=== PATIENT | male | born 1955 | race Caucasian/White ===

== ENCOUNTER 2018-01-08 10:50 | Inpatient (IN) | payer OTHER, MEDICAID ==
[~2018-01-08] VITALS: Ht 175.3 cm; Wt 78.5 kg
[2018-01-08] MEDS ORDERED: SODIUM CHLORIDE 0.9% 1,000 ML IV ONE ×2 (11:05)
[2018-01-08] MEDS ORDERED: THIAMINE 100mg/ml INJ (200mg/2ml VIAL) IV ONE ×2 (11:15→14:15)
[2018-01-08] MEDS ORDERED: chlordiazePOXIDE HCL 5 MG CAP PO ONE (11:15)
[2018-01-08 11:42] LABS: Basophils # (auto) 0 uL; Basophils % (auto) 0.1 % (0.0-2.0); Eosinophils # (auto) 0 uL; Hemoglobin 19.1 g/dL (13.5-17.5); Lymphocytes # (auto) 0.9 uL; Nucleated Red Blood Cells % 0.1 %
[2018-01-08 11:45] LABS: Lymphocytes % (auto) 6.9 % (10.0-50.0); Mean Corpuscular Hemoglobin 36.3 pg (28.0-32.0); Mean Corpuscular Hgb Conc. 33.9 g/dL (32.0-36.0); Mean Corpuscular Volume 106.9 fL (80.0-100.0); Monocytes # (auto) 0.8 uL; Monocytes % (auto) 5.8 % (0.0-12.0); Neutrophils # (auto) 11.8 uL; Neutrophils % (auto) 87.2 % (37.0-80.0); Platelet Count (auto) 111 10^3/uL (140-450); Red Blood Cells 5.26 10^6/uL (4.5-5.90); Red Cell Distribution Width 14.9 % (11.8-14.3); White Blood Cell 13.5 10^3/uL (4.4-10.8)
[2018-01-08 11:48] LABS: Hematocrit 56.2 % (41.0-53.0)
[2018-01-08 11:58] LABS: INR 0.93 (0.9-1.15); Partial Thromboplastin Time 27.5 sec (23.78-33.04)
[2018-01-08 12:02] LABS: Albumin 3.4 g/dL (3.4-5.0); Calcium 8.5 mg/dL (8.5-10.1); Magnesium 2.3 mg/dL (1.6-2.6); Potassium 3.9 mmol/L (3.5-5.1)
[2018-01-08 12:11] LABS: BUN/Creatinine Ratio 30.6; Bilirubin, Total 0.8 mg/dL (0.2-1.0)
[2018-01-08] MEDS ORDERED: ENOXAPARIN SOD 80 MG/0.8ML SYRINGE SC ONE (13:00)
[2018-01-08] MEDS ORDERED: chlordiazePOXIDE HCL 25 MG CAP PO ONE (14:15)
[2018-01-08] MEDS: SODIUM CHLORIDE 0.9% 1,000 ML IV SCH ×2 (14:49→23:00)
[2018-01-08] MEDS ORDERED: NITROGLYCERIN 0.4 MG SL TAB SL PRN (15:00)
[2018-01-08] MEDS ORDERED: ACETAMINOPHEN 500 MG TAB PO PRN (15:00)
[2018-01-08] MEDS ORDERED: LACTULOSE 20Gm/30ML SOLN PO PRN (15:00)
[2018-01-08] MEDS ORDERED: PANTOPRAZOLE 40 MG TAB PO ONE (15:00)
[2018-01-08] MEDS ORDERED: ASPirin 81 mg TAB PO ONE (15:00)
[2018-01-08] MEDS ORDERED: NITROGLYCERIN 0.2MG/HR TOPICAL PATCH TD ONE (15:00)
[2018-01-08] MEDS ORDERED: HYDROcodone-ACET 5/325MG TAB PO PRN (15:00)
[2018-01-08] MEDS ORDERED: MORPHINE SULFATE 4 MG/ML SYR/VIAL IV PRN ×2 (15:00)
[2018-01-08] MEDS ORDERED: DEXTROSE (50%) 50ML SYRG IV PRN (15:00)
[2018-01-08] MEDS: METOPROLOL TARTRATE 25 MG TAB PO SCH ×2 (15:16→21:04)
[2018-01-08 16:10] VITALS: BP 145/105
[2018-01-08 16:49] LABS: Urine Bacteria FEW /hpf (None Seen); Urine Blood 1+ /uL (Negative); Urine Hyaline Cast FEW /lpf (0 - 2); Urine Mucus FEW (None Seen); Urine Specific Gravity 1.022 (1.001-1.035); Urine WBC 2 /hpf (0 - 3)
[2018-01-08 16:58] LABS: Amphetamine Screen, Urine NEGATIVE (NEGATIVE); Barbiturate Scree,Urine NEGATIVE (NEGATIVE); Benzodiazephine Screen, Urine NEGATIVE (NEGATIVE); Cannabinoid Screen, Urine NEGATIVE (NEGATIVE); Cocaine Screen, Urine NEGATIVE (NEGATIVE); Opiate Scree,Urine POSITIVE (NEGATIVE); Phencyclidine Screen, Urine NEGATIVE (NEGATIVE)
[2018-01-08] MEDS: LORazepam 2MG/ML-1ML VIAL IV PRN ×3 (17:03→23:37)
[2018-01-08 17:04] VITALS: BP 145/105
[2018-01-08] MEDS ORDERED: HYDR-4683 PO (17:20)
[2018-01-08] MEDS ORDERED: MULTCAP45 PO (17:20)
[2018-01-08] MEDS: chlordiazePOXIDE HCL 25 MG CAP PO SCH ×2 (17:44→21:04)
[2018-01-08] MEDS: ACCU-CHEK COMFORT CURVE STRIP VI SCH ×2 (17:44→23:37)
[2018-01-08] MEDS ORDERED: chlordiazePOXIDE HCL 25 MG CAP PO SCH (18:00)
[2018-01-08 20:00] VITALS: BP 156/103
[2018-01-08] MEDS ORDERED: cloNIDine HCL 0.1 MG TAB PO ONE (22:30)
[2018-01-09] VITALS (9 sets, daily range): BP systolic 127–166; BP diastolic 71–110
[2018-01-09] MEDS: chlordiazePOXIDE HCL 25 MG CAP PO SCH ×6 (01:37→22:08)
[2018-01-09] MEDS: LORazepam 2MG/ML-1ML VIAL IV PRN ×3 (02:02→11:12)
[2018-01-09] MEDS: ACCU-CHEK COMFORT CURVE STRIP VI SCH ×4 (05:26→22:22)
[2018-01-09 05:27] LABS: Basophils # (auto) 0 uL; Eosinophils # (auto) 0 uL; Lymphocytes # (auto) 0.5 uL; Lymphocytes % (auto) 4.4 % (10.0-50.0); Monocytes # (auto) 0.8 uL; Neutrophils # (auto) 9.7 uL
[2018-01-09] MEDS: SODIUM CHLORIDE 0.9% 1,000 ML IV SCH ×2 (05:27→15:15)
[2018-01-09 05:29] LABS: Basophils % (auto) 0.1 % (0.0-2.0); Hemoglobin 15.9 g/dL (13.5-17.5); Mean Corpuscular Hemoglobin 37.3 pg (28.0-32.0); Mean Corpuscular Hgb Conc. 35.2 g/dL (32.0-36.0); Monocytes % (auto) 6.9 % (0.0-12.0); Neutrophils % (auto) 88.6 % (37.0-80.0); Platelet Count (auto) 86 10^3/uL (140-450); Red Blood Cells 4.25 10^6/uL (4.5-5.90); Red Cell Distribution Width 14.8 % (11.8-14.3)
[2018-01-09 05:44] LABS: Albumin 3.3 g/dL (3.4-5.0); Potassium 3.7 mmol/L (3.5-5.1)
[2018-01-09 05:51] LABS: BUN/Creatinine Ratio 43.1
[2018-01-09 05:52] LABS: Bilirubin, Total 1.4 mg/dL (0.2-1.0); Calcium 8.4 mg/dL (8.5-10.1); Total Protein 6.3 g/dL (6.4-8.2)
[2018-01-09] MEDS: PANTOPRAZOLE 40 MG TAB PO SCH (10:28)
[2018-01-09] MEDS: METOPROLOL TARTRATE 25 MG TAB PO SCH ×2 (10:31→22:09)
[2018-01-09] MEDS: ASPirin 81 mg TAB PO SCH (10:31)
[2018-01-09] MEDS: THIAMINE 100mg/ml INJ (200mg/2ml VIAL) IV SCH (10:32)
[2018-01-09] MEDS: NITROGLYCERIN 0.2MG/HR TOPICAL PATCH TD SCH (10:33)
[2018-01-09] MEDS ORDERED: DEXTROSE (50%) 50ML SYRG IV PRN (11:30)
[2018-01-09] MEDS: cloNIDine HCL 0.1 MG TAB PO PRN (11:52)
[2018-01-09] MEDS: InsuLIN REG 1unit/0.01ml Soln (100units/ml) SC SCH ×3 (12:03→22:27)
[2018-01-09 12:35] LABS: Albumin 3.3 g/dL (3.4-5.0)
[2018-01-09 12:39] LABS: Bilirubin, Direct 0.6 mg/dL (0-0.2); Bilirubin, Total 1.6 mg/dL (0.2-1.0); Total Protein 6.5 g/dL (6.4-8.2)
[2018-01-09] MEDS ORDERED: METOPROLOL TARTRATE 1MG/1ML-5ML VIAL IV ONE (13:00)
[2018-01-09] MEDS ORDERED: IOHEXOL 350 MG/ML 100ML IJ ONE (14:05)
[2018-01-10] VITALS: BP 135/101
[2018-01-10] MEDS: cloNIDine HCL 0.1 MG TAB PO PRN (01:11)
[2018-01-10] MEDS: chlordiazePOXIDE HCL 25 MG CAP PO SCH ×6 (02:02→23:12)
[2018-01-10 04:11] VITALS: BP 135/91
[2018-01-10] MEDS: SODIUM CHLORIDE 0.9% 1,000 ML IV SCH ×4 (04:32→21:20)
[2018-01-10] MEDS: InsuLIN REG 1unit/0.01ml Soln (100units/ml) SC SCH ×4 (06:51→22:00)
[2018-01-10] MEDS: ACCU-CHEK COMFORT CURVE STRIP VI SCH ×4 (06:51→22:00)
[2018-01-10 06:59] LABS: Basophils # (auto) 0 uL; Eosinophils # (auto) 0.1 uL; Hematocrit 43.5 % (41.0-53.0); Lymphocytes # (auto) 0.8 uL; Mean Corpuscular Hgb Conc. 34.4 g/dL (32.0-36.0); Monocytes # (auto) 0.7 uL; Neutrophils # (auto) 6.5 uL; Neutrophils % (auto) 80.1 % (37.0-80.0); Red Cell Distribution Width 14.6 % (11.8-14.3)
[2018-01-10 07:02] LABS: Basophils % (auto) 0.2 % (0.0-2.0); Eosinophils % (auto) 1.7 % (0.0-7.0); Lymphocytes % (auto) 9.7 % (10.0-50.0); Mean Corpuscular Hemoglobin 37.1 pg (28.0-32.0); Mean Corpuscular Volume 107.8 fL (80.0-100.0); Monocytes % (auto) 8.3 % (0.0-12.0); Nucleated Red Blood Cells % 0.1 %; Red Blood Cells 4.04 10^6/uL (4.5-5.90); White Blood Cell 8.2 10^3/uL (4.4-10.8)
[2018-01-10 07:13] LABS: Albumin 2.7 g/dL (3.4-5.0); Calcium 7.7 mg/dL (8.5-10.1); Potassium 3.4 mmol/L (3.5-5.1)
[2018-01-10 07:20] LABS: Bilirubin, Total 1.5 mg/dL (0.2-1.0); Total Protein 5.8 g/dL (6.4-8.2)
[2018-01-10 07:35] LABS: Platelet Count (auto) 64 10^3/uL (140-450)
[2018-01-10] MEDS ORDERED: ADENOSINE 65 MG in GIVE UN-DILUTED 0 ML IV STA (08:34)
[2018-01-10] MEDS: THIAMINE 100mg/ml INJ (200mg/2ml VIAL) IV SCH (10:22)
[2018-01-10] MEDS: PANTOPRAZOLE 40 MG TAB PO SCH (10:23)
[2018-01-10] MEDS: ASPirin 81 mg TAB PO SCH (10:23)
[2018-01-10 12:06] VITALS: BP 148/92
[2018-01-10] MEDS: METOPROLOL TARTRATE 25 MG TAB PO SCH ×2 (14:10→23:13)
[2018-01-10] MEDS: NITROGLYCERIN 0.2MG/HR TOPICAL PATCH TD SCH (14:17)
[2018-01-10 15:50] VITALS: BP 153/98
[2018-01-10 19:47] VITALS: BP 142/94
[2018-01-10] MEDS: PROMETHAZINE HCL 25 MG/ML 1ML IV PRN (20:34)
[2018-01-11] VITALS: BP 151/92
[2018-01-11] MEDS: chlordiazePOXIDE HCL 25 MG CAP PO SCH ×2 (02:11→05:57)
[2018-01-11] MEDS: PROMETHAZINE HCL 25 MG/ML 1ML IV PRN (03:23)
[2018-01-11 04:00] VITALS: BP 144/88
[2018-01-11 05:40] LABS: Basophils # (auto) 0 uL; Basophils % (auto) 0.2 % (0.0-2.0); Eosinophils # (auto) 0.3 uL; Lymphocytes # (auto) 0.9 uL; Nucleated Red Blood Cells % 0.1 %; Platelet Count (auto) 69 10^3/uL (140-450); White Blood Cell 9.2 10^3/uL (4.4-10.8)
[2018-01-11 05:43] LABS: Eosinophils % (auto) 3.4 % (0.0-7.0); Hematocrit 44.1 % (41.0-53.0); Hemoglobin 15.2 g/dL (13.5-17.5); Lymphocytes % (auto) 9.4 % (10.0-50.0); Mean Corpuscular Hemoglobin 37.4 pg (28.0-32.0); Mean Corpuscular Hgb Conc. 34.4 g/dL (32.0-36.0); Mean Corpuscular Volume 108.7 fL (80.0-100.0); Monocytes # (auto) 0.9 uL; Monocytes % (auto) 9.4 % (0.0-12.0); Neutrophils # (auto) 7.1 uL; Neutrophils % (auto) 77.6 % (37.0-80.0); Red Blood Cells 4.06 10^6/uL (4.5-5.90); Red Cell Distribution Width 14.5 % (11.8-14.3)
[2018-01-11 06:10] LABS: Albumin 2.9 g/dL (3.4-5.0); Calcium 7.6 mg/dL (8.5-10.1)
[2018-01-11 06:14] LABS: BUN/Creatinine Ratio 32.7; Bilirubin, Total 1.5 mg/dL (0.2-1.0); Total Protein 5.8 g/dL (6.4-8.2)
[2018-01-11 06:29] LABS: Potassium 2.9 mmol/L (3.5-5.1)
[2018-01-11] MEDS: InsuLIN REG 1unit/0.01ml Soln (100units/ml) SC SCH ×4 (07:00→21:16)
[2018-01-11] MEDS: ACCU-CHEK COMFORT CURVE STRIP VI SCH ×4 (07:13→21:15)
[2018-01-11] MEDS ORDERED: POTASSIUM EFFERVESENT TAB 25 MEQ PO ONE (07:15)
[2018-01-11] MEDS: POTASSIUM CHL 20MEQ/100ML 100 ML IV SCH ×2 (07:49→10:07)
[2018-01-11] MEDS: cloNIDine HCL 0.1 MG TAB PO PRN (07:52)
[2018-01-11 08:00] VITALS: BP 146/106
[2018-01-11] MEDS: ASPirin 81 mg TAB PO SCH (10:09)
[2018-01-11] MEDS: THIAMINE 100mg/ml INJ (200mg/2ml VIAL) IV SCH (10:09)
[2018-01-11] MEDS: PANTOPRAZOLE 40 MG TAB PO SCH (10:10)
[2018-01-11] MEDS: NITROGLYCERIN 0.2MG/HR TOPICAL PATCH TD SCH (10:11)
[2018-01-11] MEDS: METOPROLOL TARTRATE 25 MG TAB PO SCH ×2 (10:12→21:15)
[2018-01-11 12:00] VITALS: BP 140/97
[2018-01-11 15:55] VITALS: BP 134/88
[2018-01-11 20:00] VITALS: BP 135/93
[2018-01-11] MEDS: chlordiazePOXIDE HCL 25 MG CAP PO PRN (21:16)
[2018-01-12] VITALS: BP 147/82
[2018-01-12] MEDS: PROMETHAZINE HCL 25 MG/ML 1ML IV PRN
[2018-01-12] MEDS: LORazepam 2MG/ML-1ML VIAL IV PRN (02:19)
[2018-01-12 03:55] VITALS: BP 134/84
[2018-01-12] MEDS: ACCU-CHEK COMFORT CURVE STRIP VI SCH ×2 (05:32→11:30)
[2018-01-12] MEDS: InsuLIN REG 1unit/0.01ml Soln (100units/ml) SC SCH ×2 (05:38→11:30)
[2018-01-12 05:44] LABS: Basophils # (auto) 0 uL; Basophils % (auto) 0.2 % (0.0-2.0); Eosinophils # (auto) 0.3 uL; Monocytes % (auto) 8.5 % (0.0-12.0); Red Cell Distribution Width 14.7 % (11.8-14.3)
[2018-01-12 05:46] LABS: Eosinophils % (auto) 2.4 % (0.0-7.0); Hematocrit 47.3 % (41.0-53.0); Hemoglobin 15.9 g/dL (13.5-17.5); Lymphocytes # (auto) 0.8 uL; Mean Corpuscular Hemoglobin 36.9 pg (28.0-32.0); Mean Corpuscular Hgb Conc. 33.6 g/dL (32.0-36.0); Mean Corpuscular Volume 109.9 fL (80.0-100.0); Neutrophils # (auto) 9.8 uL; Neutrophils % (auto) 81.9 % (37.0-80.0); Platelet Count (auto) 87 10^3/uL (140-450); Red Blood Cells 4.31 10^6/uL (4.5-5.90)
[2018-01-12 05:59] LABS: Albumin 3.2 g/dL (3.4-5.0); BUN/Creatinine Ratio 18.8; Calcium 8.1 mg/dL (8.5-10.1); Potassium 3.5 mmol/L (3.5-5.1)
[2018-01-12 06:01] LABS: Bilirubin, Total 1.7 mg/dL (0.2-1.0); Total Protein 6.8 g/dL (6.4-8.2)
[2018-01-12] MEDS: chlordiazePOXIDE HCL 25 MG CAP PO PRN ×2 (06:55→15:06)
[2018-01-12 09:00] VITALS: BP 134/90
[2018-01-12] MEDS: NITROGLYCERIN 0.2MG/HR TOPICAL PATCH TD SCH (10:00)
[2018-01-12] MEDS: THIAMINE 100mg/ml INJ (200mg/2ml VIAL) IV SCH (10:37)
[2018-01-12] MEDS: PANTOPRAZOLE 40 MG TAB PO SCH (10:38)
[2018-01-12] MEDS: ASPirin 81 mg TAB PO SCH (10:39)
[2018-01-12] MEDS: METOPROLOL TARTRATE 25 MG TAB PO SCH (10:39)
[2018-01-12 16:03] VITALS: BP 134/90
== END 2018-01-12 18:00 | disposition home or self-care (01) | DRG 896 ==
LOC: ER 10:50 → EDBD 10:50 → OVERFLOW 14:54 → DOU IN ICU 16:32 → TELE-WESTW 01-12 06:23
PROVIDERS: ADMIT Internal Medicine; ATTEND Family Medicine
DX: F10.229 Alcohol dependence with intoxication, unspecified (principal); I21.4 Non-ST elevation (NSTEMI) myocardial infarction; G93.41 Metabolic encephalopathy; N17.9 Acute kidney failure, unspecified; R65.10 Systemic inflammatory response syndrome (SIRS) of non-infectious origin without acute organ dysfunction; E11.65 Type 2 diabetes mellitus with hyperglycemia; E86.0 Dehydration; N28.9 Disorder of kidney and ureter, unspecified; G89.29 Other chronic pain; M54.9 Dorsalgia, unspecified; Y90.8 Blood alcohol level of 240 mg/100 ml or more; D69.6 Thrombocytopenia, unspecified; I10 Essential (primary) hypertension; E78.5 Hyperlipidemia, unspecified; F17.210 Nicotine dependence, cigarettes, uncomplicated; F41.9 Anxiety disorder, unspecified; Z79.4 Long term (current) use of insulin; Z88.0 Allergy status to penicillin; Z79.82 Long term (current) use of aspirin; Z79.899 Other long term (current) drug therapy
CPT/HCPCS: 36415; 70450; 71045; 71275; 76705; 78452; 80053; 80061; 80076; 80307; 80320; 81001; 82550; 82962; 83036; 83735; 84443; 84484; 85025; 85379; 85610; 85652; 85730; 87040; 87081; 87086; 93005; 93017; 93306; 93970; 96361; 96372; 96374; 97116; 97530; A6257; G0378; J0153; J1815; J3480

== ENCOUNTER 2018-10-01 12:58 | Inpatient (IN) | payer OTHER ==
[~2018-10-01] VITALS: Ht 180.3 cm; Wt 97.8 kg
[~2018-10-01 12:58] MED LIST: AML5T PO; ASPI-231 PO; ESCI20TA51 PO; FINA5TAB4 PO; HYDR-4833 PO; IBUP600T27 PO; MULTCAP45 PO; ROSU10TA16 PO; TRAZ100T2 PO
[2018-10-01 13:54] LABS: Basophils # (auto) 0.1 uL; Basophils % (auto) 0.8 % (0.0-2.0); Eosinophils # (auto) 0 uL; Hematocrit 43.2 % (41.0-53.0); Hemoglobin 14.7 g/dL (13.5-17.5); Lymphocytes % (auto) 8.1 % (10.0-50.0); Monocytes # (auto) 0.6 uL; Monocytes % (auto) 5.3 % (0.0-12.0); Neutrophils # (auto) 10.4 uL; Neutrophils % (auto) 85.8 % (37.0-80.0); Nucleated Red Blood Cells % 0.1 %; Platelet Count (auto) 262 10^3/uL (140-450); Red Blood Cells 4.45 10^6/uL (4.5-5.90); Red Cell Distribution Width 14.6 % (11.8-14.3); White Blood Cell 12.1 10^3/uL (4.4-10.8)
[2018-10-01 14:13] LABS: Albumin 3.5 g/dL (3.4-5.0); Calcium 7.6 mg/dL (8.5-10.1)
[2018-10-01] MEDS ORDERED: SODIUM CHLORIDE 0.9% 1,000 ML IV ONE (14:15)
[2018-10-01 14:16] LABS: Acetaminophen 2.2 ug/mL (10-30)
[2018-10-01 14:24] LABS: BUN/Creatinine Ratio 19.1; Bilirubin, Total 0.3 mg/dL (0.2-1.0); Total Protein 6.4 g/dL (6.4-8.2)
[2018-10-01 14:29] LABS: Urine Bacteria NONE SEEN /hpf (None Seen); Urine Blood Negative /uL (Negative); Urine Mucus FEW (None Seen); Urine Specific Gravity 1.019 (1.001-1.035); Urine WBC 2 /hpf (0 - 3)
[2018-10-01 14:37] LABS: Amphetamine Screen, Urine NEGATIVE (NEGATIVE); Barbiturate Scree,Urine NEGATIVE (NEGATIVE); Benzodiazephine Screen, Urine NEGATIVE (NEGATIVE); Cannabinoid Screen, Urine NEGATIVE (NEGATIVE); Cocaine Screen, Urine NEGATIVE (NEGATIVE); Opiate Scree,Urine NEGATIVE (NEGATIVE); Phencyclidine Screen, Urine NEGATIVE (NEGATIVE)
[2018-10-01] MEDS ORDERED: FOLIC ACID 1 MG, MULTIPLE VITAMIN 10 ML, MAGNESIUM SULF SDV 50% 8 MEQ, THIAMINE INJ 100... INJ SCH ×5 (15:00)
[2018-10-01] MEDS ORDERED: PANTOPRAZOLE 40 MG TAB PO ONE (20:15)
[2018-10-01] MEDS ORDERED: NICOTINE 21MG/24 HR TOPICAL PATCH TD ONE (20:15)
[2018-10-01] MEDS ORDERED: LORazepam 2MG/ML-1ML VIAL IV ONE (20:15)
[2018-10-01] MEDS ORDERED: METHOCARBAMOL 500 MG TAB PO PRN (21:45)
[2018-10-01] MEDS ORDERED: ACETAMINOPHEN 500 MG TAB PO PRN (21:45)
[2018-10-01] MEDS ORDERED: LORazepam 2MG/ML-1ML VIAL IV PRN (21:45)
[2018-10-01] MEDS ORDERED: traZODone HCL 50 MG TAB PO SCH (22:00)
[2018-10-01] MEDS: chlordiazePOXIDE HCL 25 MG CAP PO SCH (22:30)
[2018-10-01 23:10] VITALS: BP 157/88
--- NOTE | 2018-10-01 23:10 | NUR ---
Telemetry admit from [facility] admitted to Telemetry unit. Patient oriented to SILVANA MAUR[facility], primary RN, unit, room, bed, and unit policies regarding patient care and visiting hours. Patient now on continuous telemetry monitoring, tele box #[id number] and telemetry reading on arrival to unit is sinus rhythm 90. Patient placed on bedside oxygen, weighed by bedscale and encouraged to call if they need something. All questions and concerns addressed, patient verbalized understanding. Bed in lowest locked position, call light within reach, side rails up x2, fall precautions in place. Will continue to monitor Q1hr and PRN.
[2018-10-02] MEDS ORDERED: METF-370 PO (00:04)
[2018-10-02] MEDS ORDERED: GLIP2.5T28 PO (00:04)
[2018-10-02] MEDS ORDERED: METH750T3 PO (00:04)
[2018-10-02 05:00] VITALS: BP 148/87
[2018-10-02] MEDS: chlordiazePOXIDE HCL 25 MG CAP PO SCH ×4 (06:08→21:43)
[2018-10-02 06:14] LABS: Basophils # (auto) 0 uL; Basophils % (auto) 0.4 % (0.0-2.0); Eosinophils # (auto) 0.1 uL; Eosinophils % (auto) 0.8 % (0.0-7.0); Hematocrit 39.3 % (41.0-53.0); Hemoglobin 13.5 g/dL (13.5-17.5); Lymphocytes # (auto) 0.8 uL; Lymphocytes % (auto) 7.6 % (10.0-50.0); Mean Corpuscular Hemoglobin 33.1 pg (28.0-32.0); Mean Corpuscular Hgb Conc. 34.4 g/dL (32.0-36.0); Mean Corpuscular Volume 96.2 fL (80.0-100.0); Monocytes # (auto) 0.6 uL; Monocytes % (auto) 5.5 % (0.0-12.0); Neutrophils # (auto) 8.7 uL; Neutrophils % (auto) 85.7 % (37.0-80.0); Platelet Count (auto) 223 10^3/uL (140-450); Red Blood Cells 4.09 10^6/uL (4.5-5.90); Red Cell Distribution Width 14.4 % (11.8-14.3); White Blood Cell 10.2 10^3/uL (4.4-10.8)
[2018-10-02 06:31] LABS: Calcium 7.4 mg/dL (8.5-10.1); Potassium 3.7 mmol/L (3.5-5.1)
[2018-10-02 06:47] LABS: BUN/Creatinine Ratio 20.6
[2018-10-02 08:00] VITALS: BP 151/83
--- NOTE | 2018-10-02 08:00 | NUR ---
Received pt resting in bed, call light within reach, pt denies any pain or discomfort at this time, will continue to monitor pt.
[2018-10-02] MEDS: ASPirin-EC 81 mg tab PO SCH (09:15)
[2018-10-02] MEDS: cefTRIAXone 1GM/50ML D5W 50 ML IV SCH (09:15)
[2018-10-02] MEDS: amLODIPine BESYLATE 5 MG TAB PO SCH (09:16)
[2018-10-02] MEDS: FINASTERIDE 5 MG TAB PO SCH (09:17)
[2018-10-02] MEDS: NICOTINE 14 MG/24HR TOPICAL PATCH TD SCH (09:17)
[2018-10-02 09:59] VITALS: BP 151/83
[2018-10-02] MEDS ORDERED: AZITHROMYCIN 500MG/ 250ML 250 ML IV SCH (10:00)
[2018-10-02] MEDS: FOLIC ACID 1 MG, MULTIPLE VITAMIN 10 ML, MAGNESIUM SULF SDV 50% 8 MEQ, THIAMINE INJ 100... INJ SCH ×5 (12:33)
[2018-10-02 12:50] VITALS: BP 145/86
--- NOTE | 2018-10-02 13:50 | NUR ---
Dr. Her at bed side to see pt, doctor discussed the plan of care with pt and pt's .
[2018-10-02] MEDS ORDERED: DEXTROSE (50%) 50ML SYRG IV PRN (14:00)
[2018-10-02] MEDS ORDERED: CLINDAMYCIN 600 MG/4 ML VL IM SCH (14:00)
[2018-10-02] MEDS: CLINDAMYCIN IV SCH ×2 (14:09→21:43)
[2018-10-02] MEDS: D5W IV SCH ×2 (14:09→21:43)
[2018-10-02 17:01] VITALS: BP 133/79
[2018-10-02] MEDS: ACCU-CHEK COMFORT CURVE STRIP VI SCH ×2 (17:26→23:56)
[2018-10-02] MEDS: InsuLIN REG 1unit/0.01ml Soln (100units/ml) SC SCH ×2 (17:27→23:57)
--- NOTE | 2018-10-02 19:20 | NUR ---
Opening Shift Note Assumed care of patient, awake and alert. No S/S of distress/SOB or pain. Instructed on POC and to call for assist PRN. Bed in lowest locked position, call light within reach, side rails up x2. Will continue to monitor for changes Q1hr and PRN.
[2018-10-02] MEDS: HYDROcodone-ACET 5/325MG TAB PO PRN (20:51)
[2018-10-02 21:46] VITALS: BP 132/84
--- NOTE | 2018-10-02 22:50 | NUR ---
IV insertion IV access obtained, via clean sterile technique by inserting 20 gauge catheter at left forearm after 1 attempt. IV secured properly. No trauma to site. Patient tolerated well. NOTE: Previous IV accidently pulled out by patient. Catheter was intact, pressure dressing applied.
[2018-10-03] MEDS: HYDROcodone-ACET 5/325MG TAB PO PRN ×2 (04:35→10:47)
[2018-10-03 04:42] VITALS: BP 148/88
[2018-10-03 05:19] LABS: Basophils # (auto) 0 uL; Basophils % (auto) 0.5 % (0.0-2.0); Eosinophils # (auto) 0.4 uL; Eosinophils % (auto) 4.5 % (0.0-7.0); Hematocrit 39.3 % (41.0-53.0); Hemoglobin 13.3 g/dL (13.5-17.5); Lymphocytes % (auto) 12.4 % (10.0-50.0); Mean Corpuscular Hemoglobin 32.8 pg (28.0-32.0); Mean Corpuscular Hgb Conc. 33.9 g/dL (32.0-36.0); Mean Corpuscular Volume 96.9 fL (80.0-100.0); Monocytes # (auto) 0.5 uL; Monocytes % (auto) 5.8 % (0.0-12.0); Neutrophils # (auto) 6.1 uL; Neutrophils % (auto) 76.8 % (37.0-80.0); Platelet Count (auto) 186 10^3/uL (140-450); Red Blood Cells 4.05 10^6/uL (4.5-5.90); Red Cell Distribution Width 14.6 % (11.8-14.3); White Blood Cell 7.9 10^3/uL (4.4-10.8)
[2018-10-03] MEDS: D5W IV SCH (05:57)
[2018-10-03] MEDS: InsuLIN REG 1unit/0.01ml Soln (100units/ml) SC SCH ×2 (05:57→12:05)
[2018-10-03] MEDS: CLINDAMYCIN IV SCH (05:57)
[2018-10-03] MEDS: ACCU-CHEK COMFORT CURVE STRIP VI SCH ×2 (05:57→12:04)
[2018-10-03] MEDS: cefTRIAXone 1GM/50ML D5W 50 ML IV SCH (07:53)
--- NOTE | 2018-10-03 08:00 | NUR ---
Received pt resting in bed, call light within reach, pt reports back pain, pt requested the muscle spasm medication, will continue to monitor pt.
--- NOTE | 2018-10-03 08:45 | NUR ---
Dr. Her at bed side to see pt, doctor discussed plan of care with pt, removed O2 and monitor pt's O2 level at [facility] after 5 min and pt's O2 level was 96% at [facility], Dr. Her informed.
[2018-10-03 09:00] VITALS: BP 139/88
[2018-10-03] MEDS: ASPirin-EC 81 mg tab PO SCH (09:48)
[2018-10-03] MEDS: amLODIPine BESYLATE 5 MG TAB PO SCH (09:49)
[2018-10-03] MEDS: FINASTERIDE 5 MG TAB PO SCH (09:50)
[2018-10-03] MEDS: NICOTINE 14 MG/24HR TOPICAL PATCH TD SCH (09:50)
[2018-10-03] MEDS ORDERED: chlordiazePOXIDE HCL 25 MG CAP PO SCH (10:00)
[2018-10-03 10:24] VITALS: BP 139/88
[2018-10-03] MEDS: FOLIC ACID 1 MG, MULTIPLE VITAMIN 10 ML, MAGNESIUM SULF SDV 50% 8 MEQ, THIAMINE INJ 100... INJ SCH ×5 (11:08)
--- NOTE | 2018-10-03 12:40 | NUR ---
Discharge instructions given as ordered. Encourage to follow up with PMD as instructed. All questions and concerns addressed. Patient verbalized understanding. Medication reconciliation form completed and copy given to patient. Home medications held in Pharmacy returned to patient, no needed vaccines to be given. IV removed with catheter intact, pressure dressing applied. Telemetry unit returned to [facility].
--- NOTE | 2018-10-03 12:55 | NUR ---
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 No distress noted at time of departure.
[2018-10-03] MEDS ORDERED: MILK OF MAGNESIA 30ML SUSP ONE (22:22)
[2018-10-04] MEDS ORDERED: chlordiazePOXIDE HCL 25 MG CAP PO SCH (07:00)
== END 2018-10-03 12:55 | disposition home or self-care (01) | DRG 177 ==
LOC: ER 12:58 → EDBD 12:58 → TELE 12:59 → TELE-CENTR 23:10
PROVIDERS: ADMIT Nurse Practitioner Family; ATTEND Family Medicine
DX: J69.0 Pneumonitis due to inhalation of food and vomit (principal); G92 Toxic encephalopathy; E87.1 Hypo-osmolality and hyponatremia; J90 Pleural effusion, not elsewhere classified; F10.229 Alcohol dependence with intoxication, unspecified; I10 Essential (primary) hypertension; E78.5 Hyperlipidemia, unspecified; Y90.8 Blood alcohol level of 240 mg/100 ml or more; Z83.3 Family history of diabetes mellitus; E78.00 Pure hypercholesterolemia, unspecified; E86.0 Dehydration; F17.210 Nicotine dependence, cigarettes, uncomplicated; F32.9 Major depressive disorder, single episode, unspecified; F41.9 Anxiety disorder, unspecified; M54.5 Low back pain; R73.03 Prediabetes; G89.29 Other chronic pain; N40.0 Benign prostatic hyperplasia without lower urinary tract symptoms; Z79.82 Long term (current) use of aspirin; Z79.899 Other long term (current) drug therapy; Z88.0 Allergy status to penicillin
CPT/HCPCS: 36415; 71045; 80048; 80053; 80307; 80320; 80329; 81001; 82962; 83036; 83735; 85025; 93005; 94761; 96365; 96366; 96375; G0378; J0696; J1815; J3490

== ENCOUNTER 2018-10-27 14:05 | Inpatient (IN) | payer OTHER | END 2018-10-29 11:25 | disposition home or self-care (01) | LOC: ER 14:05 → TELE 14:06 → TELE-EAST 20:04 | DX: I24.9 Acute ischemic heart disease, unspecified (principal); I10 Essential (primary) hypertension; F10.129 Alcohol abuse with intoxication, unspecified; E11.9 Type 2 diabetes mellitus without complications; E78.5 Hyperlipidemia, unspecified ==

== ENCOUNTER 2018-11-05 20:46 | Emergency (ER) | payer OTHER ==
[~2018-11-05] VITALS: Ht 180.3 cm; Wt 72.6 kg
[~2018-11-05 20:46] MED LIST changes: +GLIP2.5T28 PO; +METF-370 PO
[2018-11-05] MEDS ORDERED: THIAMINE INJ 100 MG in SODIUM CHLORIDE 0.9% 1,000 ML IV ONE (21:45)
[2018-11-05] MEDS ORDERED: LORazepam 2MG/ML-1ML VIAL IV ONE (22:00)
[2018-11-05 22:57] LABS: Salicylate 2.3 mg/dL (2.8-20.0)
[2018-11-05 23:29] LABS: Basophils # (auto) 0 uL; Basophils % (auto) 0.6 % (0.0-2.0); Eosinophils # (auto) 0.1 uL; Eosinophils % (auto) 1.3 % (0.0-7.0); Hematocrit 50.8 % (41.0-53.0); Hemoglobin 16.9 g/dL (13.5-17.5); Lymphocytes # (auto) 1.9 uL; Mean Corpuscular Hemoglobin 31.7 pg (28.0-32.0); Mean Corpuscular Hgb Conc. 33.3 g/dL (32.0-36.0); Mean Corpuscular Volume 95.1 fL (80.0-100.0); Monocytes # (auto) 0.7 uL; Monocytes % (auto) 9.8 % (0.0-12.0); Neutrophils # (auto) 4.5 uL; Neutrophils % (auto) 62.3 % (37.0-80.0); Platelet Count (auto) 112 10^3/uL (140-450); Red Blood Cells 5.34 10^6/uL (4.5-5.90); Red Cell Distribution Width 15.8 % (11.8-14.3); White Blood Cell 7.2 10^3/uL (4.4-10.8)
[2018-11-05 23:36] LABS: Acetaminophen < 2.0 ug/mL (10-30)
[2018-11-05 23:50] LABS: Albumin 3.7 g/dL (3.4-5.0); BUN/Creatinine Ratio 14.5; Magnesium 1.9 mg/dL (1.6-2.6); Potassium 3.4 mmol/L (3.5-5.1)
[2018-11-05 23:53] LABS: Bilirubin, Total 0.6 mg/dL (0.2-1.0); Total Protein 6.8 g/dL (6.4-8.2)
[2018-11-06 00:06] LABS: Blood Alcohol 391.2 mg/dL (0-5)
[2018-11-06 00:13] LABS: Amylase 48 U/L (25-115); Lipase 284 U/L (73-393)
[2018-11-06] MEDS ORDERED: SODIUM CHLORIDE 0.9% 1,000 ML IV ONE ×3 (00:15→08:30)
[2018-11-06] MEDS ORDERED: SODIUM CHLORIDE 0.9% 1,000 ML IVB ONE (08:00)
[2018-11-06 09:00] VITALS: BP 133/100
[2018-11-06] MEDS ORDERED: FOLIC ACID 1 MG, MULTIPLE VITAMIN 10 ML, MAGNESIUM SULF SDV 50% 8 MEQ, THIAMINE INJ 100... INJ SCH ×5 (12:00)
== END 2018-11-06 10:29 | disposition left against medical advice (07) ==
LOC: ER 20:48
DX: F10.129 Alcohol abuse with intoxication, unspecified (principal); F32.9 Major depressive disorder, single episode, unspecified; R07.89 Other chest pain; R45.851 Suicidal ideations; F41.9 Anxiety disorder, unspecified; F17.210 Nicotine dependence, cigarettes, uncomplicated; E78.5 Hyperlipidemia, unspecified; I10 Essential (primary) hypertension; I25.2 Old myocardial infarction
CPT/HCPCS: 36415; 71045; 80053; 80320; 80329; 82140; 82150; 83690; 83735; 84443; 96361; 96365; 96366; 96375; 99284; J2060; J7030

== ENCOUNTER 2019-04-20 15:43 | Emergency (ER) | payer OTHER ==
[~2019-04-20] VITALS: Ht 180.3 cm; Wt 81.6 kg
[~2019-04-20 15:43] MED LIST changes: -TRAZ100T2 PO; +TRAZ100T3 PO
[2019-04-20] MEDS ORDERED: SODIUM CHLORIDE 0.9% 1,000 ML IV ONE ×2 (15:49)
[2019-04-20] MEDS ORDERED: THIAMINE 100mg/ml INJ (200mg/2ml VIAL) IV ONE (16:00)
[2019-04-20 16:41] LABS: Basophils # (auto) 0.1 10 ^3/uL (0-0.2); Basophils % (auto) 1.3 % (0.0-2.0); Eosinophils # (auto) 0.2 10 ^3/uL (0-0.8); Eosinophils % (auto) 2.1 % (0.0-7.0); Hematocrit 42.5 % (41.0-53.0); Lymphocytes # (auto) 1.7 10 ^3/uL (0.4-5.4); Lymphocytes % (auto) 18.1 % (10.0-50.0); Mean Corpuscular Hemoglobin 30.6 pg (28.0-32.0); Mean Corpuscular Hgb Conc. 32.9 g/dL (32.0-36.0); Monocytes # (auto) 0.5 10 ^3/uL (0-1.3); Monocytes % (auto) 5.1 % (0.0-12.0); Neutrophils # (auto) 6.8 10 ^3/uL (1.6-8.6); Neutrophils % (auto) 73.4 % (37.0-80.0); Nucleated Red Blood Cells % 0.2 %; Platelet Count (auto) 168 10^3/uL (140-450); Red Blood Cells 4.57 10^6/uL (4.5-5.90); Red Cell Distribution Width 16.3 % (11.8-14.3); White Blood Cell 9.3 10^3/uL (4.4-10.8)
[2019-04-20 16:56] LABS: Acetaminophen < 2.0 ug/mL (10-30); Albumin 3.2 g/dL (3.4-5.0); Calcium 7.7 mg/dL (8.5-10.1); Potassium 3.7 mmol/L (3.5-5.1); Salicylate 4.5 mg/dL (2.8-20.0)
[2019-04-20 17:04] LABS: Bilirubin, Total 0.3 mg/dL (0.2-1.0); Total Protein 6.6 g/dL (6.4-8.2)
[2019-04-20 23:33] LABS: Urine Bacteria NONE SEEN /hpf (None Seen); Urine Blood Negative /uL (Negative); Urine Mucus FEW (None Seen); Urine Specific Gravity 1.008 (1.001-1.035); Urine WBC 1 /hpf (0 - 3)
[2019-04-20 23:49] LABS: Amphetamine Screen, Urine NEGATIVE (NEGATIVE); Barbiturate Scree,Urine NEGATIVE (NEGATIVE); Benzodiazephine Screen, Urine POSITIVE (NEGATIVE); Cannabinoid Screen, Urine NEGATIVE (NEGATIVE); Cocaine Screen, Urine NEGATIVE (NEGATIVE); Opiate Scree,Urine NEGATIVE (NEGATIVE); Phencyclidine Screen, Urine NEGATIVE (NEGATIVE)
[2019-04-21] MEDS ORDERED: LORazepam 0.5 MG TAB PO ONE (00:45)
[2019-04-21] MEDS ORDERED: levoFLOXacin 750MG 150 ML IV ONE ×2 (01:15→01:45)
[2019-04-21 01:33] VITALS: BP 136/75
[2019-04-21] MEDS ORDERED: IOHEXOL 350 MG/ML 100ML IJ ONE (01:58)
== END 2019-04-21 04:43 | disposition home or self-care (01) ==
LOC: EDBD 15:43 → EDUNIT# 15:43 → ER 15:43
DX: F10.129 Alcohol abuse with intoxication, unspecified (principal); I10 Essential (primary) hypertension; E11.9 Type 2 diabetes mellitus without complications; F17.210 Nicotine dependence, cigarettes, uncomplicated; Z88.0 Allergy status to penicillin; Y90.9 Presence of alcohol in blood, level not specified
CPT/HCPCS: 36415; 71045; 71275; 80053; 80307; 80320; 80329; 81001; 84484; 85025; 85379; 87040; 96365; 96375; 99285; J1956; J3411; J7030; Q9967

== ENCOUNTER → 2019-05-11 | Emergency (ER) | payer OTHER ==
[~2019-05-11] VITALS: Ht 182.9 cm; Wt 77.1 kg
[~2019-05-11] MED LIST changes: +SODIUM CHLORIDE 0.9% 1,000 ML IV ONE; +THIAMINE 100mg/ml INJ (200mg/2ml VIAL) IV ONE; +levETIRAcetam 500 MG/5ML INJ IV ONE
[2019-05-11 21:15] LABS: Basophils # (auto) 0 10 ^3/uL (0-0.2); Basophils % (auto) 0.2 % (0.0-2.0); Eosinophils # (auto) 0 10 ^3/uL (0-0.8); Eosinophils % (auto) 0.3 % (0.0-7.0); Hemoglobin 15.4 g/dL (13.5-17.5); Lymphocytes # (auto) 0.9 10 ^3/uL (0.4-5.4); Lymphocytes % (auto) 11.7 % (10.0-50.0); Mean Corpuscular Hemoglobin 31.6 pg (28.0-32.0); Mean Corpuscular Hgb Conc. 33.6 g/dL (32.0-36.0); Mean Corpuscular Volume 94.2 fL (80.0-100.0); Monocytes # (auto) 0.6 10 ^3/uL (0-1.3); Monocytes % (auto) 7.7 % (0.0-12.0); Neutrophils % (auto) 80.1 % (37.0-80.0); Nucleated Red Blood Cells % 0.1 %; Platelet Count (auto) 178 10^3/uL (140-450); Red Blood Cells 4.88 10^6/uL (4.5-5.90); White Blood Cell 7.5 10^3/uL (4.4-10.8)
[2019-05-11 21:17] LABS: Red Cell Distribution Width 20.5 % (11.8-14.3)
[2019-05-11 21:32] LABS: Albumin 2.9 g/dL (3.4-5.0); BUN/Creatinine Ratio 15.5; Magnesium 1.7 mg/dL (1.6-2.6); Potassium 3.7 mmol/L (3.5-5.1)
[2019-05-11 21:34] LABS: Total Protein 6.8 g/dL (6.4-8.2)
[2019-05-11 21:36] LABS: Acetaminophen < 2.0 ug/mL (10-30); Salicylate 3.9 mg/dL (2.8-20.0)
[2019-05-11 21:53] LABS: Blood Alcohol 443.9 mg/dL (0-5)
[2019-05-11 22:17] LABS: INR 1.02 (0.9-1.15)
[2019-05-12 01:33] VITALS: BP 111/79
== END | disposition home or self-care (01) ==
LOC: EDUNIT# 20:09 → EDBD 20:09 → ER 20:11
DX: S00.83XA Contusion of other part of head, initial encounter (principal); S40.012A Contusion of left shoulder, initial encounter; S20.211A Contusion of right front wall of thorax, initial encounter; F10.129 Alcohol abuse with intoxication, unspecified; E11.9 Type 2 diabetes mellitus without complications; I10 Essential (primary) hypertension; F17.210 Nicotine dependence, cigarettes, uncomplicated; Z88.0 Allergy status to penicillin; Z79.1 Long term (current) use of non-steroidal anti-inflammatories (NSAID); Z79.82 Long term (current) use of aspirin; Z79.899 Other long term (current) drug therapy; Y90.8 Blood alcohol level of 240 mg/100 ml or more; W18.39XA Other fall on same level, initial encounter; Y93.89 Activity, other specified; Y92.89 Other specified places as the place of occurrence of the external cause; Y99.8 Other external cause status
CPT/HCPCS: 36415; 70450; 70486; 71250; 72125; 73030; 80053; 80320; 80329; 83735; 85025; 85610; 85730; 96374; 96375; 99285; J1953; J3411; J7030; J7060

== ENCOUNTER → 2019-08-02 | Emergency (ER) | payer OTHER ==
[~2019-08-02] VITALS: Ht 177.8 cm; Wt 77.1 kg
[~2019-08-02] MED LIST changes: +LORazepam 2MG/ML-1ML VIAL IV ONE; +NOREPINEPHRINE 8 MG/250ML KIT 0 ML IV ONE; -SODIUM CHLORIDE 0.9% 1,000 ML IV ONE; -THIAMINE 100mg/ml INJ (200mg/2ml VIAL) IV ONE; +cefTRIAXone 1GM/50ML D5W 50 ML IV ONE; -levETIRAcetam 500 MG/5ML INJ IV ONE
[2019-08-02 19:31] LABS: Basophils # (auto) 0.1 10 ^3/uL (0-0.2); Basophils % (auto) 1.5 % (0.0-2.0); Eosinophils # (auto) 0.1 10 ^3/uL (0-0.8); Eosinophils % (auto) 1.6 % (0.0-7.0); Hematocrit 46.3 % (41.0-53.0); Hemoglobin 15.4 g/dL (13.5-17.5); Lymphocytes # (auto) 1.8 10 ^3/uL (0.4-5.4); Lymphocytes % (auto) 19.4 % (10.0-50.0); Mean Corpuscular Hgb Conc. 33.2 g/dL (32.0-36.0); Mean Corpuscular Volume 93.6 fL (80.0-100.0); Monocytes # (auto) 0.6 10 ^3/uL (0-1.3); Monocytes % (auto) 6.8 % (0.0-12.0); Neutrophils # (auto) 6.6 10 ^3/uL (1.6-8.6); Neutrophils % (auto) 70.7 % (37.0-80.0); Nucleated Red Blood Cells % 0.2 %; Platelet Count (auto) 285 10^3/uL (140-450); Red Blood Cells 4.95 10^6/uL (4.5-5.90); Red Cell Distribution Width 15.9 % (11.8-14.3); White Blood Cell 9.4 10^3/uL (4.4-10.8)
[2019-08-02 19:47] LABS: Albumin 3.8 g/dL (3.4-5.0); BUN/Creatinine Ratio 16.5; Calcium 8.3 mg/dL (8.5-10.1); Magnesium 2.3 mg/dL (1.6-2.6); Potassium 4.3 mmol/L (3.5-5.1)
[2019-08-02 19:52] LABS: Bilirubin, Total 0.6 mg/dL (0.2-1.0); Total Protein 7.6 g/dL (6.4-8.2)
[2019-08-02 21:39] LABS: Urine Bacteria FEW /hpf (None Seen); Urine Blood Negative /uL (Negative); Urine WBC <1 /hpf (0 - 3)
[2019-08-02 21:50] LABS: Amphetamine Screen, Urine NEGATIVE (NEGATIVE); Barbiturate Scree,Urine NEGATIVE (NEGATIVE); Benzodiazephine Screen, Urine NEGATIVE (NEGATIVE); Cannabinoid Screen, Urine NEGATIVE (NEGATIVE); Cocaine Screen, Urine NEGATIVE (NEGATIVE); Opiate Scree,Urine NEGATIVE (NEGATIVE); Phencyclidine Screen, Urine NEGATIVE (NEGATIVE)
[2019-08-02 22:24] LABS: INR 0.97 (0.9-1.15); Partial Thromboplastin Time 25.9 sec (23.64-32.05)
[2019-08-03 03:00] VITALS: BP 179/95
== END | disposition short-term general hospital (02) ==
LOC: EDUNIT# 17:57 → EDBD 18:18 → ER 18:20
DX: S06.5X0A Traumatic subdural hemorrhage without loss of consciousness, initial encounter (principal); F10.129 Alcohol abuse with intoxication, unspecified; E11.9 Type 2 diabetes mellitus without complications; E78.5 Hyperlipidemia, unspecified; I10 Essential (primary) hypertension; Z88.0 Allergy status to penicillin; Z86.73 Personal history of transient ischemic attack (TIA), and cerebral infarction without residual deficits; W18.09XA Striking against other object with subsequent fall, initial encounter; Y93.89 Activity, other specified; Y92.098 Other place in other non-institutional residence as the place of occurrence of the external cause; Y99.8 Other external cause status; Y90.9 Presence of alcohol in blood, level not specified
CPT/HCPCS: 36415; 70450; 71045; 72125; 80053; 80307; 80320; 81001; 83735; 84484; 85025; 85610; 85730; 96365; 96375; 99291; J0696; 93005

== ENCOUNTER 2020-02-27 14:10 | Inpatient (IN) | payer OTHER ==
[~2020-02-27] VITALS: Ht 182.9 cm; Wt 69.7 kg
[~2020-02-27 14:10] MED LIST changes: +ESCI-34 PO; -ESCI20TA51 PO; -LORazepam 2MG/ML-1ML VIAL IV ONE; -NOREPINEPHRINE 8 MG/250ML KIT 0 ML IV ONE; -cefTRIAXone 1GM/50ML D5W 50 ML IV ONE
[2020-02-27 15:24] LABS: Hematocrit 52.4 % (41.0-53.0); Hemoglobin 17.4 g/dL (13.5-17.5); Mean Corpuscular Hemoglobin 31.3 pg (28.0-32.0); Mean Corpuscular Hgb Conc. 33.2 g/dL (32.0-36.0); Mean Corpuscular Volume 94.2 fL (80.0-100.0); Platelet Count (auto) 357 10^3/uL (140-450); Red Blood Cells 5.56 10^6/uL (4.5-5.90); White Blood Cell 28.2 10^3/uL (4.4-10.8)
[2020-02-27 15:28] LABS: Basophils % (manual) 0 (0.0-2.0); Blast Cells 0; Eosinophils % (manual) 0 (0-7); Metamyelocytes % 0; Myelocytes % 0; Promyelocytes % 0; Reactive Lymphocytes 0
[2020-02-27 15:41] LABS: INR 1.02 (0.9-1.15); Partial Thromboplastin Time 24.9 sec (23.0-31.2)
[2020-02-27 15:53] LABS: Potassium 4.6 mmol/L (3.5-5.1)
[2020-02-27 16:04] LABS: Albumin 3.7 g/dL (3.4-5.0); BUN/Creatinine Ratio 21.2; Bilirubin, Total 0.3 mg/dL (0.2-1.0); Calcium 7.9 mg/dL (8.5-10.1); Magnesium 2.2 mg/dL (1.6-2.6); Total Protein 7.3 g/dL (6.4-8.2)
[2020-02-27 16:14] LABS: Band Neutrophils % (manual) 9; Lymphocytes % (manual) 3 (10.0-50.0); Monocytes % (manual) 4 (0-12)
[2020-02-27] MEDS ORDERED: PANTOPRAZOLE 40 MG TAB PO SCH (16:30)
[2020-02-27] MEDS ORDERED: AMLO-496 PO (16:50)
[2020-02-27] MEDS ORDERED: TRAZ50TA2 PO (16:50)
[2020-02-27] MEDS ORDERED: DULO1CAP4 PO (16:50)
[2020-02-27] MEDS ORDERED: ACET-1304 PO (16:51)
[2020-02-27] MEDS ORDERED: BISO5TAB44 PO (16:51)
[2020-02-27] MEDS ORDERED: ASCO100076 PO (16:53)
[2020-02-27] MEDS ORDERED: GARL200T PO (16:54)
[2020-02-27] MEDS ORDERED: OMEG306C PO (16:54)
[2020-02-27] MEDS ORDERED: THIAMINE 100mg/ml INJ (200mg/2ml VIAL) IV ONE ×2 (17:00→18:00)
[2020-02-27] MEDS ORDERED: PIPERACILLIN-TAZOB 3.375GM 100 ML IV ONE (17:00)
[2020-02-27] MEDS ORDERED: NITROGLYCERIN 0.4 MG SL TAB SL PRN ×2 (17:30→18:30)
[2020-02-27] MEDS ORDERED: MORPHINE SULF INJ 2 MG/ML SYRINGE 1ML IV PRN ×2 (17:30→18:30)
[2020-02-27] MEDS ORDERED: LACTATED RINGER'S 1,000 ML IV ONE (18:00)
[2020-02-27] MEDS ORDERED: MULTIPLE VITAMIN TAB PO ONE (18:30)
[2020-02-27] MEDS ORDERED: FOLIC ACID 1 MG in D5W 5% 50 ML INJ ONE (18:30)
[2020-02-27] MEDS ORDERED: SUCRALFATE 1 GM/10 ML ORAL SUSP PO ONE (18:30)
[2020-02-27] MEDS ORDERED: PANTOPRAZOLE 40 MG TAB PO ONE (18:30)
[2020-02-27] MEDS ORDERED: MAGNESIUM SULFATE 1GM/100ML 100 ML IV ONE (18:45)
[2020-02-27] MEDS ORDERED: DEXTROSE (50%) 50ML SYRG IV PRN (18:45)
[2020-02-27] MEDS ORDERED: CALCIUM CHL 100MG/ML 1,000 MG in D5W 5% 100 ML IV ONE (18:45)
[2020-02-27] MEDS: chlordiazePOXIDE HCL 25 MG CAP PO SCH (18:53)
[2020-02-27 18:58] LABS: Lactic Acid w/Reflex 6.8 mmol/L (0.4-2.0)
[2020-02-27] MEDS: DOXYCYCLINE 100MG/250ML 250 ML IV SCH (20:09)
[2020-02-27] MEDS: ACETAMINOPHEN 325 MG TAB PO PRN (20:25)
[2020-02-27] MEDS: SODIUM CHLORIDE 0.9% 1,000 ML IV SCH (21:00)
[2020-02-27] MEDS: CLINDAMYCIN 600MG IV 50 ML IV SCH (22:00)
[2020-02-27] MEDS: ACCU-CHEK COMFORT CURVE STRIP VI SCH (22:00)
[2020-02-27] MEDS: InsuLIN REG 1unit/0.01ml Soln (100units/ml) SC SCH (22:00)
[2020-02-27] MEDS: SUCRALFATE 1 GM/10 ML ORAL SUSP PO SCH (22:00)
[2020-02-27] MEDS: LORazepam 2MG/ML-1ML VIAL IV PRN (22:20)
[2020-02-27] MEDS: ONDANSETRON HCL 4 MG/2 ML VIAL IV PRN (23:03)
[2020-02-28] MEDS: ONDANSETRON HCL 4 MG/2 ML VIAL IV PRN ×2 (00:35→20:31)
[2020-02-28] MEDS: chlordiazePOXIDE HCL 25 MG CAP PO SCH ×3 (02:05→23:02)
[2020-02-28] MEDS ORDERED: LORazepam 2MG/ML-1ML VIAL IV ONE (03:15)
[2020-02-28] MEDS: CLINDAMYCIN 600MG IV 50 ML IV SCH ×3 (06:00→23:02)
[2020-02-28] MEDS: DOXYCYCLINE 100MG/250ML 250 ML IV SCH ×2 (06:38→18:55)
[2020-02-28] MEDS: InsuLIN REG 1unit/0.01ml Soln (100units/ml) SC SCH ×4 (06:40→23:01)
[2020-02-28] MEDS: ACCU-CHEK COMFORT CURVE STRIP VI SCH ×4 (06:40→23:02)
[2020-02-28] MEDS: SUCRALFATE 1 GM/10 ML ORAL SUSP PO SCH ×3 (06:53→17:15)
[2020-02-28] MEDS ORDERED: chlordiazePOXIDE HCL 25 MG CAP PO SCH (07:00)
[2020-02-28 07:02] LABS: Basophils # (auto) 0.1 10 ^3/uL (0-0.2); Basophils % (auto) 0.4 % (0.0-2.0); Eosinophils # (auto) 0 10 ^3/uL (0-0.8); Hematocrit 40.1 % (41.0-53.0); Hemoglobin 13.7 g/dL (13.5-17.5); Lymphocytes # (auto) 0.6 10 ^3/uL (0.4-5.4); Lymphocytes % (auto) 2.4 % (10.0-50.0); Mean Corpuscular Hemoglobin 31.8 pg (28.0-32.0); Mean Corpuscular Hgb Conc. 34.1 g/dL (32.0-36.0); Mean Corpuscular Volume 93.4 fL (80.0-100.0); Monocytes # (auto) 1.6 10 ^3/uL (0-1.3); Monocytes % (auto) 6.4 % (0.0-12.0); Neutrophils # (auto) 22.5 10 ^3/uL (1.6-8.6); Neutrophils % (auto) 90.8 % (37.0-80.0); Platelet Count (auto) 105 10^3/uL (140-450); Red Blood Cells 4.29 10^6/uL (4.5-5.90); Red Cell Distribution Width 13.6 % (11.8-14.3); White Blood Cell 24.8 10^3/uL (4.4-10.8)
[2020-02-28 07:23] LABS: INR 1.11 (0.9-1.15); Partial Thromboplastin Time 21.9 sec (23.0-31.2)
[2020-02-28 07:47] LABS: Calcium 7.6 mg/dL (8.5-10.1); Magnesium 2.2 mg/dL (1.6-2.6)
[2020-02-28 07:52] LABS: BUN/Creatinine Ratio 20.9; Bilirubin, Total 0.8 mg/dL (0.2-1.0); Phosphorus 4.7 mg/dL (2.5-4.90)
[2020-02-28 08:19] LABS: Potassium 5.1 mmol/L (3.5-5.1)
[2020-02-28 10:58] LABS: Alcohol, Urine < 3.0 mg/dL (0-10); Amphetamine Screen, Urine NEGATIVE (NEGATIVE); Barbiturate Scree,Urine NEGATIVE (NEGATIVE); Benzodiazephine Screen, Urine POSITIVE (NEGATIVE); Cannabinoid Screen, Urine NEGATIVE (NEGATIVE); Cocaine Screen, Urine NEGATIVE (NEGATIVE); Opiate Scree,Urine NEGATIVE (NEGATIVE); Phencyclidine Screen, Urine NEGATIVE (NEGATIVE)
[2020-02-28 11:12] LABS: Urine Bacteria FEW /hpf (None Seen); Urine Blood Negative /uL (Negative); Urine Specific Gravity 1.016 (1.001-1.035); Urine WBC 4 /hpf (0 - 3)
[2020-02-28] MEDS: DULoxetine HCL 30 MG CAP PO SCH (11:45)
[2020-02-28] MEDS: MULTIPLE VITAMIN TAB PO SCH (11:45)
[2020-02-28] MEDS: FINASTERIDE 5 MG TAB PO SCH (11:46)
[2020-02-28] MEDS: PANTOPRAZOLE 40 MG TAB PO SCH ×2 (11:46→23:02)
[2020-02-28] MEDS: SODIUM CHLORIDE 0.9% 1,000 ML IV SCH ×3 (11:46→19:40)
[2020-02-28] MEDS ORDERED: VANCOMYCIN 1GM/250ML 250 ML IV ONE (12:45)
[2020-02-28] MEDS ORDERED: VANCOMYCIN PER PHARMACY 0 MG IV SCH (12:45)
[2020-02-28] MEDS ORDERED: SODIUM CHLORIDE 0.9% 1,000 ML IV ONE (13:00)
[2020-02-28] MEDS ORDERED: FOLIC ACID 1 MG, MULTIPLE VITAMIN 10 ML, MAGNESIUM SULF SDV 50% 8 MEQ, THIAMINE INJ 100... INJ SCH ×5 (13:00)
[2020-02-28] MEDS: FOLIC ACID 1 MG TAB PO SCH (15:29)
[2020-02-28] MEDS: THIAMINE HCL 100 MG TAB PO SCH (15:30)
[2020-02-28] MEDS: TAMSULOSIN HYDROCHLORIDE 0.4 MG CAP PO SCH (18:27)
[2020-02-28] MEDS: HYDROcodone-ACET 5/325MG TAB PO PRN (20:31)
[2020-02-29] MEDS: SUCRALFATE 1 GM/10 ML ORAL SUSP PO SCH ×4 (00:05→16:40)
[2020-02-29] MEDS: SODIUM CHLORIDE 0.9% 1,000 ML IV SCH ×3 (03:57→15:53)
[2020-02-29] MEDS: CLINDAMYCIN 600MG IV 50 ML IV SCH ×2 (06:00→14:00)
[2020-02-29] MEDS ORDERED: dilTIAZem 25 MG/5 ML VIAL IV ONE ×5 (06:45→07:30)
[2020-02-29] MEDS ORDERED: ADENOSINE 6 MG/2 ML INJ IV ONE (07:02)
[2020-02-29] MEDS ORDERED: dilTIAZem 125mg/125ml BAG KIT 125 ML IV ONE (07:15)
[2020-02-29 07:18] LABS: Basophils # (auto) 0 10 ^3/uL (0-0.2); Basophils % (auto) 0.3 % (0.0-2.0); Eosinophils # (auto) 0.2 10 ^3/uL (0-0.8); Eosinophils % (auto) 1.3 % (0.0-7.0); Hematocrit 37.1 % (41.0-53.0); Hemoglobin 12.6 g/dL (13.5-17.5); Lymphocytes # (auto) 1.3 10 ^3/uL (0.4-5.4); Lymphocytes % (auto) 8.2 % (10.0-50.0); Mean Corpuscular Hemoglobin 31.3 pg (28.0-32.0); Mean Corpuscular Volume 92.1 fL (80.0-100.0); Monocytes # (auto) 0.8 10 ^3/uL (0-1.3); Monocytes % (auto) 5.1 % (0.0-12.0); Neutrophils # (auto) 13.5 10 ^3/uL (1.6-8.6); Neutrophils % (auto) 85.1 % (37.0-80.0); Platelet Count (auto) 153 10^3/uL (140-450); Red Blood Cells 4.02 10^6/uL (4.5-5.90); Red Cell Distribution Width 13.7 % (11.8-14.3); White Blood Cell 15.9 10^3/uL (4.4-10.8)
[2020-02-29] MEDS: dilTIAZem 125mg/125ml BAG KIT 125 ML IV SCH (07:20)
[2020-02-29 07:30] LABS: Alanine Aminotransferase 28 U/L (16-61); Albumin 2.8 g/dL (3.4-5.0); Anion Gap 6 (5-15); Aspartate Aminotransferase 30 U/L (15-37); BUN/Creatinine Ratio 22.7; Blood Alcohol < 3.0 mg/dL (0-5); Blood Urea Nitrogen 20 mg/dL (7-18); Calcium 7.7 mg/dL (8.5-10.1); Carbon Dioxide 23 mmol/L (21-32); Chloride 107 mmol/L (98-107); GFR African American 112 mL/min; GFR Non-African American 92 mL/min; Glucose 154 mg/dL (74-106); Potassium 3.9 mmol/L (3.5-5.1); Sodium 136 mmol/L (136-145)
[2020-02-29 07:32] LABS: Alkaline Phosphatase 73 U/L (45-117); Bilirubin, Total 0.6 mg/dL (0.2-1.0); Total Protein 5.5 g/dL (6.4-8.2)
[2020-02-29] MEDS: DOXYCYCLINE 100MG/250ML 250 ML IV SCH ×2 (08:35→18:19)
[2020-02-29] MEDS: ACCU-CHEK COMFORT CURVE STRIP VI SCH ×4 (08:35→23:18)
[2020-02-29] MEDS: InsuLIN REG 1unit/0.01ml Soln (100units/ml) SC SCH ×4 (08:36→23:21)
[2020-02-29] MEDS: FOLIC ACID 1 MG TAB PO SCH (09:29)
[2020-02-29] MEDS: DULoxetine HCL 30 MG CAP PO SCH (09:29)
[2020-02-29] MEDS: THIAMINE HCL 100 MG TAB PO SCH (09:29)
[2020-02-29] MEDS: METOPROLOL SUCCINATE XL 50 MG TAB PO SCH (09:30)
[2020-02-29] MEDS: chlordiazePOXIDE HCL 25 MG CAP PO SCH (09:30)
[2020-02-29] MEDS: PANTOPRAZOLE 40 MG TAB PO SCH (09:30)
[2020-02-29] MEDS: MULTIPLE VITAMIN TAB PO SCH (09:30)
[2020-02-29] MEDS: FINASTERIDE 5 MG TAB PO SCH (09:30)
[2020-02-29] MEDS ORDERED: LABETALOL HCL 5 MG/ML 4ML SYRINGE IV ONE (10:30)
[2020-02-29] MEDS: LORazepam 2MG/ML-1ML VIAL IV PRN ×2 (10:30→17:42)
[2020-02-29] MEDS ORDERED: FOLIC ACID 1 MG, MULTIPLE VITAMIN 10 ML, MAGNESIUM SULF SDV 50% 8 MEQ, THIAMINE INJ 100... INJ SCH ×5 (12:00)
[2020-02-29] MEDS: MORPHINE SULF INJ 2 MG/ML SYRINGE 1ML IV PRN (17:41)
[2020-02-29] MEDS: TAMSULOSIN HYDROCHLORIDE 0.4 MG CAP PO SCH (18:19)
[2020-03-01] MEDS: CLINDAMYCIN 600MG IV 50 ML IV SCH ×4 (00:46→21:19)
[2020-03-01] MEDS: PANTOPRAZOLE 40 MG TAB PO SCH ×3 (00:46→21:19)
[2020-03-01] MEDS: SODIUM CHLORIDE 0.9% 1,000 ML IV SCH ×4 (00:46→19:00)
[2020-03-01] MEDS: SUCRALFATE 1 GM/10 ML ORAL SUSP PO SCH ×5 (00:46→21:19)
[2020-03-01] MEDS: chlordiazePOXIDE HCL 25 MG CAP PO SCH ×2 (00:51→13:11)
[2020-03-01] MEDS: DOXYCYCLINE 100MG/250ML 250 ML IV SCH ×2 (06:30→19:08)
[2020-03-01] MEDS: ACCU-CHEK COMFORT CURVE STRIP VI SCH ×4 (07:17→21:20)
[2020-03-01] MEDS: InsuLIN REG 1unit/0.01ml Soln (100units/ml) SC SCH ×4 (07:22→21:19)
[2020-03-01 08:27] LABS: Basophils # (auto) 0 10 ^3/uL (0-0.2); Basophils % (auto) 0.1 % (0.0-2.0); Eosinophils # (auto) 0.1 10 ^3/uL (0-0.8); Eosinophils % (auto) 1.1 % (0.0-7.0); Hematocrit 36.3 % (41.0-53.0); Hemoglobin 12.3 g/dL (13.5-17.5); Lymphocytes # (auto) 0.9 10 ^3/uL (0.4-5.4); Lymphocytes % (auto) 7.6 % (10.0-50.0); Mean Corpuscular Hemoglobin 31.7 pg (28.0-32.0); Mean Corpuscular Hgb Conc. 33.9 g/dL (32.0-36.0); Mean Corpuscular Volume 93.6 fL (80.0-100.0); Monocytes # (auto) 0.7 10 ^3/uL (0-1.3); Monocytes % (auto) 5.9 % (0.0-12.0); Neutrophils # (auto) 9.7 10 ^3/uL (1.6-8.6); Neutrophils % (auto) 85.3 % (37.0-80.0); Platelet Count (auto) 134 10^3/uL (140-450); Red Blood Cells 3.88 10^6/uL (4.5-5.90); White Blood Cell 11.4 10^3/uL (4.4-10.8)
[2020-03-01 08:40] LABS: Albumin 2.5 g/dL (3.4-5.0); Anion Gap 10 (5-15); Blood Alcohol < 3.0 mg/dL (0-5); Blood Urea Nitrogen 11 mg/dL (7-18); Carbon Dioxide 22 mmol/L (21-32); Chloride 107 mmol/L (98-107); Glucose 181 mg/dL (74-106); Potassium 3.8 mmol/L (3.5-5.1); Sodium 139 mmol/L (136-145)
[2020-03-01 08:43] LABS: Alanine Aminotransferase 28 U/L (16-61); Alkaline Phosphatase 70 U/L (45-117); Aspartate Aminotransferase 15 U/L (15-37); BUN/Creatinine Ratio 17.2; Bilirubin, Total 0.7 mg/dL (0.2-1.0); GFR African American 161 mL/min; GFR Non-African American 133 mL/min; Total Protein 5.4 g/dL (6.4-8.2)
[2020-03-01] MEDS: dilTIAZem 125mg/125ml BAG KIT 125 ML IV SCH (09:23)
[2020-03-01] MEDS: THIAMINE HCL 100 MG TAB PO SCH (12:09)
[2020-03-01] MEDS: FOLIC ACID 1 MG TAB PO SCH (12:09)
[2020-03-01] MEDS: DULoxetine HCL 30 MG CAP PO SCH (12:10)
[2020-03-01] MEDS: FINASTERIDE 5 MG TAB PO SCH (12:11)
[2020-03-01] MEDS: MULTIPLE VITAMIN TAB PO SCH (12:11)
[2020-03-01] MEDS: METOPROLOL SUCCINATE XL 50 MG TAB PO SCH ×2 (12:13→21:19)
[2020-03-01] MEDS ORDERED: chlordiazePOXIDE HCL 25 MG CAP PO SCH (12:41)
[2020-03-01] MEDS ORDERED: METOPROLOL SUCCINATE XL 50 MG TAB PO ONE (16:00)
[2020-03-01] MEDS: Glucerna Carbsteady SHAKE Vanilla 8oz PO SCH (18:00)
[2020-03-01] MEDS: TAMSULOSIN HYDROCHLORIDE 0.4 MG CAP PO SCH (19:00)
[2020-03-02] MEDS: SODIUM CHLORIDE 0.9% 1,000 ML IV SCH ×5 (00:46→22:54)
[2020-03-02] MEDS: LORazepam 2MG/ML-1ML VIAL IV PRN ×2 (00:47→21:57)
[2020-03-02] MEDS ORDERED: HALOPERIDOL LACTATE 5 MG/ML INJ VIAL IM ONE (02:00)
[2020-03-02] MEDS: CLINDAMYCIN 600MG IV 50 ML IV SCH ×3 (05:03→22:29)
[2020-03-02] MEDS: DOXYCYCLINE 100MG/250ML 250 ML IV SCH ×2 (05:04→18:15)
[2020-03-02] MEDS: InsuLIN REG 1unit/0.01ml Soln (100units/ml) SC SCH ×4 (06:43→22:26)
[2020-03-02] MEDS: ACCU-CHEK COMFORT CURVE STRIP VI SCH ×4 (06:43→22:29)
[2020-03-02] MEDS: SUCRALFATE 1 GM/10 ML ORAL SUSP PO SCH ×4 (06:45→21:56)
[2020-03-02 07:57] LABS: Basophils # (auto) 0 10 ^3/uL (0-0.2); Basophils % (auto) 0.2 % (0.0-2.0); Eosinophils # (auto) 0.1 10 ^3/uL (0-0.8); Eosinophils % (auto) 0.9 % (0.0-7.0); Hematocrit 38.7 % (41.0-53.0); Hemoglobin 13.3 g/dL (13.5-17.5); Lymphocytes # (auto) 0.9 10 ^3/uL (0.4-5.4); Lymphocytes % (auto) 8.5 % (10.0-50.0); Mean Corpuscular Hemoglobin 31.9 pg (28.0-32.0); Mean Corpuscular Hgb Conc. 34.4 g/dL (32.0-36.0); Monocytes # (auto) 0.6 10 ^3/uL (0-1.3); Monocytes % (auto) 5.9 % (0.0-12.0); Neutrophils # (auto) 8.5 10 ^3/uL (1.6-8.6); Neutrophils % (auto) 84.5 % (37.0-80.0); Nucleated Red Blood Cells % 0.1 %; Platelet Count (auto) 160 10^3/uL (140-450); Red Blood Cells 4.16 10^6/uL (4.5-5.90); Red Cell Distribution Width 13.8 % (11.8-14.3); White Blood Cell 10.1 10^3/uL (4.4-10.8)
[2020-03-02] MEDS: Glucerna Carbsteady SHAKE Vanilla 8oz PO SCH ×3 (08:30→18:08)
[2020-03-02] MEDS: FOLIC ACID 1 MG TAB PO SCH (10:23)
[2020-03-02] MEDS: THIAMINE HCL 100 MG TAB PO SCH (10:23)
[2020-03-02] MEDS: METOPROLOL SUCCINATE XL 50 MG TAB PO SCH ×2 (10:24→21:56)
[2020-03-02] MEDS: DULoxetine HCL 30 MG CAP PO SCH (10:24)
[2020-03-02] MEDS: MULTIPLE VITAMIN TAB PO SCH (10:24)
[2020-03-02] MEDS: PANTOPRAZOLE 40 MG TAB PO SCH ×2 (10:24→21:56)
[2020-03-02] MEDS: FINASTERIDE 5 MG TAB PO SCH (10:24)
[2020-03-02 11:06] LABS: Calcium 8.3 mg/dL (8.5-10.1); Potassium 3.7 mmol/L (3.5-5.1)
[2020-03-02 11:11] LABS: Albumin 2.6 g/dL (3.4-5.0); BUN/Creatinine Ratio 7.4; Bilirubin, Total 0.6 mg/dL (0.2-1.0); Total Protein 5.8 g/dL (6.4-8.2)
[2020-03-02] MEDS: TAMSULOSIN HYDROCHLORIDE 0.4 MG CAP PO SCH (18:01)
[2020-03-03] MEDS: ONDANSETRON HCL 4 MG/2 ML VIAL IV PRN ×2 (01:48→10:06)
[2020-03-03] MEDS: LORazepam 2MG/ML-1ML VIAL IV PRN ×2 (01:48→10:06)
[2020-03-03] MEDS: CLINDAMYCIN 600MG IV 50 ML IV SCH ×3 (05:17→23:30)
[2020-03-03] MEDS: DOXYCYCLINE 100MG/250ML 250 ML IV SCH ×2 (05:18→18:34)
[2020-03-03] MEDS: ACCU-CHEK COMFORT CURVE STRIP VI SCH ×4 (05:59→22:45)
[2020-03-03] MEDS: InsuLIN REG 1unit/0.01ml Soln (100units/ml) SC SCH ×4 (06:00→23:00)
[2020-03-03 06:06] LABS: Basophils # (auto) 0 10 ^3/uL (0-0.2); Basophils % (auto) 0.4 % (0.0-2.0); Eosinophils # (auto) 0.2 10 ^3/uL (0-0.8); Eosinophils % (auto) 1.5 % (0.0-7.0); Hematocrit 40.3 % (41.0-53.0); Hemoglobin 13.5 g/dL (13.5-17.5); Lymphocytes # (auto) 1.1 10 ^3/uL (0.4-5.4); Lymphocytes % (auto) 8.8 % (10.0-50.0); Mean Corpuscular Hemoglobin 31.1 pg (28.0-32.0); Mean Corpuscular Hgb Conc. 33.6 g/dL (32.0-36.0); Mean Corpuscular Volume 92.8 fL (80.0-100.0); Monocytes # (auto) 1.2 10 ^3/uL (0-1.3); Neutrophils # (auto) 10.4 10 ^3/uL (1.6-8.6); Neutrophils % (auto) 80.3 % (37.0-80.0); Platelet Count (auto) 191 10^3/uL (140-450); Red Blood Cells 4.34 10^6/uL (4.5-5.90); Red Cell Distribution Width 13.5 % (11.8-14.3); White Blood Cell 12.9 10^3/uL (4.4-10.8)
[2020-03-03] MEDS: SUCRALFATE 1 GM/10 ML ORAL SUSP PO SCH ×4 (06:25→22:45)
[2020-03-03 06:27] LABS: Albumin 2.7 g/dL (3.4-5.0); Potassium 3.3 mmol/L (3.5-5.1)
[2020-03-03 06:30] LABS: BUN/Creatinine Ratio 12.7; Bilirubin, Total 0.8 mg/dL (0.2-1.0); Total Protein 5.9 g/dL (6.4-8.2)
[2020-03-03] MEDS: Glucerna Carbsteady SHAKE Vanilla 8oz PO SCH ×4 (08:31→19:45)
[2020-03-03] MEDS: SODIUM CHLORIDE 0.9% 1,000 ML IV SCH ×3 (10:05→23:40)
[2020-03-03] MEDS: FOLIC ACID 1 MG TAB PO SCH (10:05)
[2020-03-03] MEDS: MULTIPLE VITAMIN TAB PO SCH (10:05)
[2020-03-03] MEDS: METOPROLOL SUCCINATE XL 50 MG TAB PO SCH ×2 (10:05→22:45)
[2020-03-03] MEDS: FINASTERIDE 5 MG TAB PO SCH (10:05)
[2020-03-03] MEDS: PANTOPRAZOLE 40 MG TAB PO SCH ×2 (10:05→22:45)
[2020-03-03] MEDS: DULoxetine HCL 30 MG CAP PO SCH (10:05)
[2020-03-03] MEDS: THIAMINE HCL 100 MG TAB PO SCH (10:05)
[2020-03-03] MEDS ORDERED: POTASSIUM CHL 10 Meq TABLET PO ONE (14:45)
[2020-03-03] MEDS: TAMSULOSIN HYDROCHLORIDE 0.4 MG CAP PO SCH (18:32)
[2020-03-03] MEDS: MORPHINE SULF INJ 2 MG/ML SYRINGE 1ML IV PRN (20:55)
[2020-03-03] MEDS: LABETALOL HCL 5 MG/ML 4ML SYRINGE IV PRN (21:14)
[2020-03-03] MEDS ORDERED: dilTIAZem 25 MG/5 ML VIAL IV ONE (23:00)
[2020-03-04] MEDS ORDERED: LABETALOL HCL 5 MG/ML 4ML SYRINGE IV ONE (05:22)
[2020-03-04] MEDS ORDERED: LORazepam 2MG/ML-1ML VIAL ONE (05:22)
[2020-03-04] MEDS: LABETALOL HCL 5 MG/ML 4ML SYRINGE IV PRN ×3 (05:31→18:43)
[2020-03-04] MEDS: CLINDAMYCIN 600MG IV 50 ML IV SCH ×3 (06:00→22:00)
[2020-03-04] MEDS: SODIUM CHLORIDE 0.9% 1,000 ML IV SCH ×3 (06:31→19:00)
[2020-03-04] MEDS: ACCU-CHEK COMFORT CURVE STRIP VI SCH ×4 (07:00→22:21)
[2020-03-04] MEDS: SUCRALFATE 1 GM/10 ML ORAL SUSP PO SCH ×4 (07:30→22:18)
[2020-03-04] MEDS: InsuLIN REG 1unit/0.01ml Soln (100units/ml) SC SCH ×4 (07:30→22:21)
[2020-03-04] MEDS: DOXYCYCLINE 100MG/250ML 250 ML IV SCH ×2 (07:50→18:59)
[2020-03-04] MEDS: Glucerna Carbsteady SHAKE Vanilla 8oz PO SCH ×3 (08:00→18:34)
[2020-03-04 08:27] LABS: Basophils # (auto) 0 10 ^3/uL (0-0.2); Basophils % (auto) 0.2 % (0.0-2.0); Eosinophils # (auto) 0 10 ^3/uL (0-0.8); Eosinophils % (auto) 0.1 % (0.0-7.0); Hematocrit 45.8 % (41.0-53.0); Hemoglobin 15.4 g/dL (13.5-17.5); Lymphocytes # (auto) 0.8 10 ^3/uL (0.4-5.4); Lymphocytes % (auto) 4.1 % (10.0-50.0); Mean Corpuscular Hemoglobin 31.6 pg (28.0-32.0); Mean Corpuscular Hgb Conc. 33.5 g/dL (32.0-36.0); Mean Corpuscular Volume 94.1 fL (80.0-100.0); Monocytes % (auto) 5.4 % (0.0-12.0); Neutrophils # (auto) 17.2 10 ^3/uL (1.6-8.6); Neutrophils % (auto) 90.2 % (37.0-80.0); Nucleated Red Blood Cells % 1.9 %; Platelet Count (auto) 248 10^3/uL (140-450); Red Blood Cells 4.87 10^6/uL (4.5-5.90); Red Cell Distribution Width 13.8 % (11.8-14.3)
[2020-03-04 08:47] LABS: BUN/Creatinine Ratio 11.5; Calcium 8.8 mg/dL (8.5-10.1); Potassium 3.9 mmol/L (3.5-5.1)
[2020-03-04] MEDS: FOLIC ACID 1 MG TAB PO SCH (09:17)
[2020-03-04] MEDS: DULoxetine HCL 30 MG CAP PO SCH (09:17)
[2020-03-04] MEDS: PANTOPRAZOLE 40 MG TAB PO SCH ×2 (09:17→22:19)
[2020-03-04] MEDS: FINASTERIDE 5 MG TAB PO SCH (09:17)
[2020-03-04] MEDS: THIAMINE HCL 100 MG TAB PO SCH (09:17)
[2020-03-04] MEDS: METOPROLOL SUCCINATE XL 50 MG TAB PO SCH ×2 (10:00→22:19)
[2020-03-04] MEDS: MULTIPLE VITAMIN TAB PO SCH (10:00)
[2020-03-04] MEDS: LORazepam 2MG/ML-1ML VIAL IV PRN (11:33)
[2020-03-04] MEDS: MORPHINE SULF INJ 2 MG/ML SYRINGE 1ML IV PRN (13:11)
[2020-03-04] MEDS ORDERED: METOPROLOL TARTRATE 1MG/1ML-5ML VIAL IV ONE (13:30)
[2020-03-04] MEDS ORDERED: dilTIAZem 25 MG/5 ML VIAL IV ONE ×2 (17:38→17:45)
[2020-03-04] MEDS: dilTIAZem 125mg/125ml BAG KIT 125 ML IV SCH (18:18)
[2020-03-04] MEDS: TAMSULOSIN HYDROCHLORIDE 0.4 MG CAP PO SCH (18:56)
[2020-03-05] MEDS: SODIUM CHLORIDE 0.9% 1,000 ML IV SCH ×4 (02:48→22:30)
[2020-03-05] MEDS: CLINDAMYCIN 600MG IV 50 ML IV SCH ×3 (06:00→22:00)
[2020-03-05] MEDS: DOXYCYCLINE 100MG/250ML 250 ML IV SCH ×2 (06:34→17:44)
[2020-03-05] MEDS: SUCRALFATE 1 GM/10 ML ORAL SUSP PO SCH ×4 (07:00→22:30)
[2020-03-05] MEDS: ACCU-CHEK COMFORT CURVE STRIP VI SCH ×4 (07:00→22:00)
[2020-03-05] MEDS: InsuLIN REG 1unit/0.01ml Soln (100units/ml) SC SCH ×4 (07:00→22:30)
[2020-03-05] MEDS: FOLIC ACID 1 MG TAB PO SCH (07:58)
[2020-03-05] MEDS: DULoxetine HCL 30 MG CAP PO SCH (07:58)
[2020-03-05] MEDS: THIAMINE HCL 100 MG TAB PO SCH (07:58)
[2020-03-05] MEDS: Glucerna Carbsteady SHAKE Vanilla 8oz PO SCH ×3 (07:58→16:24)
[2020-03-05] MEDS: METOPROLOL SUCCINATE XL 50 MG TAB PO SCH ×2 (07:59→22:30)
[2020-03-05] MEDS: FINASTERIDE 5 MG TAB PO SCH (07:59)
[2020-03-05] MEDS: PANTOPRAZOLE 40 MG TAB PO SCH ×2 (07:59→22:30)
[2020-03-05] MEDS: MULTIPLE VITAMIN TAB PO SCH (07:59)
[2020-03-05] MEDS: dilTIAZem 125mg/125ml BAG KIT 125 ML IV SCH (16:25)
[2020-03-05] MEDS: TAMSULOSIN HYDROCHLORIDE 0.4 MG CAP PO SCH (17:14)
[2020-03-05] MEDS: MORPHINE SULF INJ 2 MG/ML SYRINGE 1ML IV PRN (20:40)
[2020-03-06] MEDS: DOCUSATE SOD 100 MG CAP PO PRN (00:10)
[2020-03-06] MEDS: ALUM & MAG HYDROX-SIMETH LIQ(MAALOX) 30 ML PO PRN (00:11)
[2020-03-06] MEDS: LORazepam 2MG/ML-1ML VIAL IV PRN (01:13)
[2020-03-06] MEDS: SODIUM CHLORIDE 0.9% 1,000 ML IV SCH ×3 (05:00→18:05)
[2020-03-06] MEDS: InsuLIN REG 1unit/0.01ml Soln (100units/ml) SC SCH ×4 (06:24→21:44)
[2020-03-06] MEDS: CLINDAMYCIN 600MG IV 50 ML IV SCH ×4 (06:25→21:50)
[2020-03-06] MEDS: DOXYCYCLINE 100MG/250ML 250 ML IV SCH ×2 (06:45→18:05)
[2020-03-06] MEDS: SUCRALFATE 1 GM/10 ML ORAL SUSP PO SCH ×4 (07:00→21:43)
[2020-03-06] MEDS: ACCU-CHEK COMFORT CURVE STRIP VI SCH ×4 (07:00→21:44)
[2020-03-06] MEDS: Glucerna Carbsteady SHAKE Vanilla 8oz PO SCH ×3 (08:26→16:49)
[2020-03-06] MEDS: METOPROLOL SUCCINATE XL 50 MG TAB PO SCH ×2 (09:35→21:46)
[2020-03-06] MEDS: DULoxetine HCL 30 MG CAP PO SCH (09:35)
[2020-03-06] MEDS: THIAMINE HCL 100 MG TAB PO SCH (09:35)
[2020-03-06] MEDS: PANTOPRAZOLE 40 MG TAB PO SCH ×2 (09:35→21:43)
[2020-03-06] MEDS: FINASTERIDE 5 MG TAB PO SCH (09:35)
[2020-03-06] MEDS: FOLIC ACID 1 MG TAB PO SCH (09:35)
[2020-03-06] MEDS: MULTIPLE VITAMIN TAB PO SCH (09:35)
[2020-03-06] MEDS: dilTIAZem 125mg/125ml BAG KIT 125 ML IV SCH (16:48)
[2020-03-06] MEDS: TAMSULOSIN HYDROCHLORIDE 0.4 MG CAP PO SCH (18:13)
[2020-03-06] MEDS: MORPHINE SULF INJ 2 MG/ML SYRINGE 1ML IV PRN (20:35)
[2020-03-07] MEDS: SODIUM CHLORIDE 0.9% 1,000 ML IV SCH ×4 (01:00→21:00)
[2020-03-07] MEDS: MORPHINE SULF INJ 2 MG/ML SYRINGE 1ML IV PRN (05:01)
[2020-03-07] MEDS: CLINDAMYCIN 600MG IV 50 ML IV SCH ×3 (06:00→21:00)
[2020-03-07] MEDS: InsuLIN REG 1unit/0.01ml Soln (100units/ml) SC SCH ×4 (06:22→22:00)
[2020-03-07] MEDS: DOXYCYCLINE 100MG/250ML 250 ML IV SCH ×3 (06:24→22:00)
[2020-03-07] MEDS: ACCU-CHEK COMFORT CURVE STRIP VI SCH ×4 (06:24→22:00)
[2020-03-07] MEDS: SUCRALFATE 1 GM/10 ML ORAL SUSP PO SCH ×4 (06:42→22:00)
[2020-03-07 07:28] LABS: Basophils # (auto) 0 10 ^3/uL (0-0.2); Basophils % (auto) 0.3 % (0.0-2.0); Eosinophils # (auto) 0.5 10 ^3/uL (0-0.8); Eosinophils % (auto) 4.5 % (0.0-7.0); Hematocrit 35.6 % (41.0-53.0); Hemoglobin 11.7 g/dL (13.5-17.5); Lymphocytes # (auto) 0.9 10 ^3/uL (0.4-5.4); Lymphocytes % (auto) 8.9 % (10.0-50.0); Mean Corpuscular Hemoglobin 30.8 pg (28.0-32.0); Mean Corpuscular Volume 93.4 fL (80.0-100.0); Monocytes # (auto) 1.2 10 ^3/uL (0-1.3); Monocytes % (auto) 11.2 % (0.0-12.0); Neutrophils % (auto) 75.1 % (37.0-80.0); Platelet Count (auto) 296 10^3/uL (140-450); Red Blood Cells 3.81 10^6/uL (4.5-5.90); White Blood Cell 10.6 10^3/uL (4.4-10.8)
[2020-03-07 07:38] LABS: Calcium 8.1 mg/dL (8.5-10.1); Potassium 3.4 mmol/L (3.5-5.1)
[2020-03-07 07:42] LABS: BUN/Creatinine Ratio 15.5
[2020-03-07] MEDS: Glucerna Carbsteady SHAKE Vanilla 8oz PO SCH ×3 (08:00→18:09)
[2020-03-07] MEDS: PANTOPRAZOLE 40 MG TAB PO SCH ×2 (12:50→22:00)
[2020-03-07] MEDS: METOPROLOL SUCCINATE XL 50 MG TAB PO SCH ×2 (12:50→22:00)
[2020-03-07] MEDS: FOLIC ACID 1 MG TAB PO SCH (12:50)
[2020-03-07] MEDS: FINASTERIDE 5 MG TAB PO SCH (12:50)
[2020-03-07] MEDS: THIAMINE HCL 100 MG TAB PO SCH (12:50)
[2020-03-07] MEDS: DULoxetine HCL 30 MG CAP PO SCH (12:50)
[2020-03-07] MEDS: MULTIPLE VITAMIN TAB PO SCH (12:50)
[2020-03-07] MEDS: TAMSULOSIN HYDROCHLORIDE 0.4 MG CAP PO SCH (17:59)
[2020-03-07] MEDS: dilTIAZem 125mg/125ml BAG KIT 125 ML IV SCH (18:41)
[2020-03-07] MEDS: LABETALOL HCL 5 MG/ML 4ML SYRINGE IV PRN ×2 (18:45→21:45)
[2020-03-08 00:10] VITALS: BP 157/95
[2020-03-08] MEDS: HYDROcodone-ACET 5/325MG TAB PO PRN ×3 (00:38→19:05)
[2020-03-08] MEDS: SODIUM CHLORIDE 0.9% 1,000 ML IV SCH ×2 (03:39→10:20)
[2020-03-08] MEDS: LABETALOL HCL 5 MG/ML 4ML SYRINGE IV PRN (04:34)
[2020-03-08] MEDS: CLINDAMYCIN 600MG IV 50 ML IV SCH ×3 (04:46→20:31)
[2020-03-08 05:00] VITALS: BP 158/103
[2020-03-08] MEDS: ACCU-CHEK COMFORT CURVE STRIP VI SCH ×4 (05:54→21:24)
[2020-03-08] MEDS: SUCRALFATE 1 GM/10 ML ORAL SUSP PO SCH ×4 (06:02→21:23)
[2020-03-08] MEDS: InsuLIN REG 1unit/0.01ml Soln (100units/ml) SC SCH ×4 (06:03→21:22)
[2020-03-08 06:30] VITALS: BP 165/100
[2020-03-08] MEDS: Glucerna Carbsteady SHAKE Vanilla 8oz PO SCH ×3 (07:55→19:04)
[2020-03-08 09:00] VITALS: BP 170/106
[2020-03-08] MEDS: DULoxetine HCL 30 MG CAP PO SCH (09:37)
[2020-03-08] MEDS: FOLIC ACID 1 MG TAB PO SCH (09:37)
[2020-03-08] MEDS: THIAMINE HCL 100 MG TAB PO SCH (09:37)
[2020-03-08] MEDS: DOXYCYCLINE 100MG/250ML 250 ML IV SCH ×2 (09:37→22:34)
[2020-03-08] MEDS: MULTIPLE VITAMIN TAB PO SCH (09:37)
[2020-03-08] MEDS: FINASTERIDE 5 MG TAB PO SCH (09:38)
[2020-03-08] MEDS: PANTOPRAZOLE 40 MG TAB PO SCH ×2 (09:38→21:23)
[2020-03-08] MEDS: cloNIDine HCL 0.1 MG TAB PO PRN (09:38)
[2020-03-08] MEDS: METOPROLOL SUCCINATE XL 50 MG TAB PO SCH ×2 (09:38→21:23)
[2020-03-08 09:50] LABS: Urine Bacteria NONE SEEN /hpf (None Seen); Urine Blood 3+ /uL (Negative); Urine Mucus MODERATE (None Seen); Urine WBC 1054 /hpf (0 - 3)
[2020-03-08 16:00] VITALS: BP 155/96
[2020-03-08] MEDS: TAMSULOSIN HYDROCHLORIDE 0.4 MG CAP PO SCH (17:05)
[2020-03-08 22:00] VITALS: BP 162/97
[2020-03-09] MEDS: ALUM & MAG HYDROX-SIMETH LIQ(MAALOX) 30 ML PO PRN (00:01)
[2020-03-09] MEDS: HYDROcodone-ACET 5/325MG TAB PO PRN (00:37)
[2020-03-09] MEDS: DOCUSATE SOD 100 MG CAP PO PRN ×2 (01:06→15:40)
[2020-03-09 05:00] VITALS: BP 180/105
[2020-03-09] MEDS: SUCRALFATE 1 GM/10 ML ORAL SUSP PO SCH ×4 (06:26→21:43)
[2020-03-09] MEDS: CLINDAMYCIN 600MG IV 50 ML IV SCH ×3 (06:26→21:00)
[2020-03-09] MEDS: InsuLIN REG 1unit/0.01ml Soln (100units/ml) SC SCH ×4 (06:28→22:00)
[2020-03-09] MEDS: ACCU-CHEK COMFORT CURVE STRIP VI SCH ×4 (07:38→22:00)
[2020-03-09] MEDS: Glucerna Carbsteady SHAKE Vanilla 8oz PO SCH ×3 (07:52→18:00)
[2020-03-09 09:00] VITALS: BP 186/110
[2020-03-09] MEDS: PANTOPRAZOLE 40 MG TAB PO SCH ×2 (10:00→21:43)
[2020-03-09] MEDS: DOXYCYCLINE 100MG/250ML 250 ML IV SCH ×2 (10:00→22:00)
[2020-03-09] MEDS: FINASTERIDE 5 MG TAB PO SCH (10:00)
[2020-03-09] MEDS: METOPROLOL SUCCINATE XL 50 MG TAB PO SCH ×2 (10:00→21:44)
[2020-03-09] MEDS: DULoxetine HCL 30 MG CAP PO SCH (10:00)
[2020-03-09] MEDS: THIAMINE HCL 100 MG TAB PO SCH (10:00)
[2020-03-09] MEDS: MULTIPLE VITAMIN TAB PO SCH (10:00)
[2020-03-09] MEDS: FOLIC ACID 1 MG TAB PO SCH (11:24)
[2020-03-09] MEDS: ACETAMINOPHEN 325 MG TAB PO PRN (15:41)
[2020-03-09 16:00] VITALS: BP 194/100
[2020-03-09] MEDS: TAMSULOSIN HYDROCHLORIDE 0.4 MG CAP PO SCH (18:00)
[2020-03-09 22:00] VITALS: BP 158/103
[2020-03-09] MEDS: LABETALOL HCL 5 MG/ML 4ML SYRINGE IV PRN (22:09)
[2020-03-10] MEDS: LORazepam 2MG/ML-1ML VIAL IV PRN (01:00)
[2020-03-10] MEDS: HYDROcodone-ACET 5/325MG TAB PO PRN ×4 (02:43→22:00)
[2020-03-10] MEDS: CLINDAMYCIN 600MG IV 50 ML IV SCH ×3 (04:56→21:58)
[2020-03-10 05:00] VITALS: BP 164/112
[2020-03-10] MEDS: SUCRALFATE 1 GM/10 ML ORAL SUSP PO SCH ×4 (06:30→21:58)
[2020-03-10] MEDS: ACCU-CHEK COMFORT CURVE STRIP VI SCH ×4 (07:00→21:58)
[2020-03-10] MEDS: LABETALOL HCL 5 MG/ML 4ML SYRINGE IV PRN ×2 (07:02→20:22)
[2020-03-10 08:00] VITALS: BP 155/98
[2020-03-10] MEDS: Glucerna Carbsteady SHAKE Vanilla 8oz PO SCH ×3 (08:00→18:00)
[2020-03-10] MEDS: DOXYCYCLINE 100MG/250ML 250 ML IV SCH ×2 (10:16→21:58)
[2020-03-10] MEDS: FOLIC ACID 1 MG TAB PO SCH (10:16)
[2020-03-10] MEDS: MULTIPLE VITAMIN TAB PO SCH (10:17)
[2020-03-10] MEDS: FINASTERIDE 5 MG TAB PO SCH (10:17)
[2020-03-10] MEDS: THIAMINE HCL 100 MG TAB PO SCH (10:17)
[2020-03-10] MEDS: DULoxetine HCL 30 MG CAP PO SCH (10:17)
[2020-03-10] MEDS: PANTOPRAZOLE 40 MG TAB PO SCH ×2 (10:18→21:58)
[2020-03-10] MEDS: METOPROLOL SUCCINATE XL 50 MG TAB PO SCH ×2 (10:18→21:59)
[2020-03-10 10:59] LABS: Basophils # (auto) 0 10 ^3/uL (0-0.2); Basophils % (auto) 0.2 % (0.0-2.0); Eosinophils # (auto) 0.2 10 ^3/uL (0-0.8); Eosinophils % (auto) 1.7 % (0.0-7.0); Hematocrit 36.9 % (41.0-53.0); Hemoglobin 12.5 g/dL (13.5-17.5); Lymphocytes # (auto) 1.1 10 ^3/uL (0.4-5.4); Lymphocytes % (auto) 7.9 % (10.0-50.0); Mean Corpuscular Hemoglobin 30.9 pg (28.0-32.0); Mean Corpuscular Hgb Conc. 33.7 g/dL (32.0-36.0); Mean Corpuscular Volume 91.6 fL (80.0-100.0); Monocytes # (auto) 0.8 10 ^3/uL (0-1.3); Monocytes % (auto) 5.6 % (0.0-12.0); Neutrophils % (auto) 84.6 % (37.0-80.0); Platelet Count (auto) 354 10^3/uL (140-450); Red Blood Cells 4.03 10^6/uL (4.5-5.90); Red Cell Distribution Width 14.1 % (11.8-14.3); White Blood Cell 14.1 10^3/uL (4.4-10.8)
[2020-03-10] MEDS: DOCUSATE SOD 100 MG CAP PO PRN ×2 (11:04→22:00)
[2020-03-10] MEDS: ALUM & MAG HYDROX-SIMETH LIQ(MAALOX) 30 ML PO PRN (11:05)
[2020-03-10 11:12] LABS: Albumin 2.2 g/dL (3.4-5.0); Potassium 3.5 mmol/L (3.5-5.1)
[2020-03-10 11:17] LABS: BUN/Creatinine Ratio 8.4; Bilirubin, Total 0.4 mg/dL (0.2-1.0)
[2020-03-10] MEDS: InsuLIN REG 1unit/0.01ml Soln (100units/ml) SC SCH ×4 (11:30→22:26)
[2020-03-10 16:00] VITALS: BP_SYST 180; BP_SYST 198; BP_DIAS 111; BP_DIAS 114
[2020-03-10] MEDS: TAMSULOSIN HYDROCHLORIDE 0.4 MG CAP PO SCH (18:00)
[2020-03-10] MEDS: MORPHINE SULF INJ 2 MG/ML SYRINGE 1ML IV PRN (19:51)
[2020-03-10] MEDS: ONDANSETRON HCL 4 MG/2 ML VIAL IV PRN (19:52)
[2020-03-10] MEDS: cloNIDine HCL 0.1 MG TAB PO PRN (20:21)
[2020-03-10 22:00] VITALS: BP 162/98
[2020-03-11] VITALS: BP 158/98
[2020-03-11] MEDS: MORPHINE SULF INJ 2 MG/ML SYRINGE 1ML IV PRN ×2 (00:03→06:33)
[2020-03-11] MEDS: ONDANSETRON HCL 4 MG/2 ML VIAL IV PRN ×3 (00:03→20:05)
[2020-03-11] MEDS: CLINDAMYCIN 600MG IV 50 ML IV SCH ×3 (04:04→21:00)
[2020-03-11 05:00] VITALS: BP 164/95
[2020-03-11] MEDS: InsuLIN REG 1unit/0.01ml Soln (100units/ml) SC SCH ×3 (06:32→22:15)
[2020-03-11] MEDS: ACCU-CHEK COMFORT CURVE STRIP VI SCH ×4 (06:32→22:00)
[2020-03-11] MEDS: SUCRALFATE 1 GM/10 ML ORAL SUSP PO SCH ×4 (06:34→22:00)
[2020-03-11 08:00] VITALS: BP 142/85
[2020-03-11] MEDS: Glucerna Carbsteady SHAKE Vanilla 8oz PO SCH ×3 (08:00→18:00)
[2020-03-11] MEDS: METOPROLOL SUCCINATE XL 50 MG TAB PO SCH ×2 (10:00→22:00)
[2020-03-11] MEDS: DOXYCYCLINE 100MG/250ML 250 ML IV SCH ×2 (10:27→22:00)
[2020-03-11] MEDS: FOLIC ACID 1 MG TAB PO SCH (10:27)
[2020-03-11] MEDS: DULoxetine HCL 30 MG CAP PO SCH (10:28)
[2020-03-11] MEDS: THIAMINE HCL 100 MG TAB PO SCH (10:28)
[2020-03-11] MEDS: MULTIPLE VITAMIN TAB PO SCH (10:28)
[2020-03-11] MEDS: FINASTERIDE 5 MG TAB PO SCH (10:28)
[2020-03-11] MEDS: PANTOPRAZOLE 40 MG TAB PO SCH ×2 (10:29→22:00)
[2020-03-11 16:00] VITALS: BP 193/102
[2020-03-11] MEDS: TAMSULOSIN HYDROCHLORIDE 0.4 MG CAP PO SCH (18:00)
[2020-03-11] MEDS: LORazepam 2MG/ML-1ML VIAL IV PRN (20:09)
[2020-03-11] MEDS: LABETALOL HCL 5 MG/ML 4ML SYRINGE IV PRN (20:13)
[2020-03-11] MEDS: HYDROcodone-ACET 5/325MG TAB PO PRN (20:13)
[2020-03-11] MEDS: cloNIDine HCL 0.1 MG TAB PO PRN (20:14)
[2020-03-11 23:12] VITALS: BP 160/100
[2020-03-12 05:07] VITALS: BP 182/104
[2020-03-12] MEDS: SUCRALFATE 1 GM/10 ML ORAL SUSP PO SCH ×4 (06:11→22:23)
[2020-03-12] MEDS: HYDROcodone-ACET 5/325MG TAB PO PRN (06:12)
[2020-03-12] MEDS: CLINDAMYCIN 600MG IV 50 ML IV SCH (06:30)
[2020-03-12] MEDS: ACCU-CHEK COMFORT CURVE STRIP VI SCH ×4 (06:31→22:22)
[2020-03-12 06:38] VITALS: BP 190/95
[2020-03-12] MEDS: InsuLIN REG 1unit/0.01ml Soln (100units/ml) SC SCH ×4 (06:52→22:29)
[2020-03-12] MEDS: LABETALOL HCL 5 MG/ML 4ML SYRINGE IV PRN (06:53)
[2020-03-12] MEDS: Glucerna Carbsteady SHAKE Vanilla 8oz PO SCH ×3 (08:30→18:42)
[2020-03-12] MEDS: ONDANSETRON HCL 4 MG/2 ML VIAL IV PRN (09:18)
[2020-03-12] MEDS: THIAMINE HCL 100 MG TAB PO SCH (10:38)
[2020-03-12] MEDS: FOLIC ACID 1 MG TAB PO SCH (10:38)
[2020-03-12] MEDS: MULTIPLE VITAMIN TAB PO SCH (10:38)
[2020-03-12] MEDS: DOXYCYCLINE 100MG/250ML 250 ML IV SCH (10:38)
[2020-03-12] MEDS: DULoxetine HCL 30 MG CAP PO SCH (10:38)
[2020-03-12] MEDS: FINASTERIDE 5 MG TAB PO SCH (10:39)
[2020-03-12] MEDS: METOPROLOL SUCCINATE XL 50 MG TAB PO SCH ×2 (10:40→22:22)
[2020-03-12] MEDS: PANTOPRAZOLE 40 MG TAB PO SCH ×2 (10:40→22:23)
[2020-03-12] MEDS: ACETAMINOPHEN 325 MG TAB PO PRN ×2 (11:09→20:38)
[2020-03-12 15:23] VITALS: BP 185/101
[2020-03-12] MEDS: cloNIDine HCL 0.1 MG TAB PO PRN (15:26)
[2020-03-12] MEDS: ALUM & MAG HYDROX-SIMETH LIQ(MAALOX) 30 ML PO PRN (18:50)
[2020-03-12] MEDS: TAMSULOSIN HYDROCHLORIDE 0.4 MG CAP PO SCH (18:58)
[2020-03-12 23:30] VITALS: BP 146/87
[2020-03-13] MEDS: ALUM & MAG HYDROX-SIMETH LIQ(MAALOX) 30 ML PO PRN (03:26)
[2020-03-13] MEDS: ACETAMINOPHEN 325 MG TAB PO PRN ×2 (05:16→16:00)
[2020-03-13] MEDS: ACCU-CHEK COMFORT CURVE STRIP VI SCH ×4 (06:40→21:13)
[2020-03-13] MEDS: SUCRALFATE 1 GM/10 ML ORAL SUSP PO SCH ×4 (06:40→21:13)
[2020-03-13] MEDS: InsuLIN REG 1unit/0.01ml Soln (100units/ml) SC SCH ×4 (06:53→21:14)
[2020-03-13 08:09] VITALS: BP 169/109
[2020-03-13] MEDS: Glucerna Carbsteady SHAKE Vanilla 8oz PO SCH ×3 (08:13→18:00)
[2020-03-13] MEDS: cloNIDine HCL 0.1 MG TAB PO PRN ×2 (08:13→16:00)
[2020-03-13] MEDS: FOLIC ACID 1 MG TAB PO SCH (09:29)
[2020-03-13] MEDS: DULoxetine HCL 30 MG CAP PO SCH (09:29)
[2020-03-13] MEDS: MULTIPLE VITAMIN TAB PO SCH (09:29)
[2020-03-13] MEDS: METOPROLOL SUCCINATE XL 50 MG TAB PO SCH ×2 (09:29→21:13)
[2020-03-13] MEDS: PANTOPRAZOLE 40 MG TAB PO SCH ×2 (09:30→21:13)
[2020-03-13] MEDS: FINASTERIDE 5 MG TAB PO SCH (09:30)
[2020-03-13] MEDS: THIAMINE HCL 100 MG TAB PO SCH (09:30)
[2020-03-13] MEDS: LABETALOL HCL 5 MG/ML 4ML SYRINGE IV PRN (12:38)
[2020-03-13 15:51] VITALS: BP 162/94
[2020-03-13] MEDS: TAMSULOSIN HYDROCHLORIDE 0.4 MG CAP PO SCH (17:35)
[2020-03-13 21:50] VITALS: BP 156/86
[2020-03-13] MEDS: ONDANSETRON HCL 4 MG/2 ML VIAL IV PRN (22:07)
[2020-03-14] MEDS: LORazepam 2MG/ML-1ML VIAL IV PRN (00:34)
[2020-03-14 05:03] VITALS: BP 120/79
[2020-03-14 06:00] VITALS: BP 183/110
[2020-03-14] MEDS: SUCRALFATE 1 GM/10 ML ORAL SUSP PO SCH ×4 (06:00→22:16)
[2020-03-14] MEDS: ACCU-CHEK COMFORT CURVE STRIP VI SCH ×4 (06:00→22:17)
[2020-03-14] MEDS: InsuLIN REG 1unit/0.01ml Soln (100units/ml) SC SCH ×4 (06:01→22:18)
[2020-03-14] MEDS: Glucerna Carbsteady SHAKE Vanilla 8oz PO SCH ×3 (08:00→18:42)
[2020-03-14] MEDS: FOLIC ACID 1 MG TAB PO SCH (10:05)
[2020-03-14] MEDS: FINASTERIDE 5 MG TAB PO SCH (10:05)
[2020-03-14] MEDS: MULTIPLE VITAMIN TAB PO SCH (10:05)
[2020-03-14] MEDS: THIAMINE HCL 100 MG TAB PO SCH (10:05)
[2020-03-14] MEDS: PANTOPRAZOLE 40 MG TAB PO SCH ×2 (10:06→22:16)
[2020-03-14] MEDS: METOPROLOL SUCCINATE XL 50 MG TAB PO SCH ×2 (10:06→22:16)
[2020-03-14] MEDS: DULoxetine HCL 30 MG CAP PO SCH (10:06)
[2020-03-14] MEDS: cloNIDine HCL 0.1 MG TAB PO PRN ×2 (11:40→20:54)
[2020-03-14] MEDS: LABETALOL HCL 5 MG/ML 4ML SYRINGE IV PRN (14:19)
[2020-03-14 16:56] VITALS: BP 183/110
[2020-03-14] MEDS: TAMSULOSIN HYDROCHLORIDE 0.4 MG CAP PO SCH (18:39)
[2020-03-14 18:45] VITALS: BP 157/98
[2020-03-14 21:00] VITALS: BP 189/114
[2020-03-15 05:38] VITALS: BP 182/104
[2020-03-15] MEDS: SUCRALFATE 1 GM/10 ML ORAL SUSP PO SCH ×4 (06:02→21:58)
[2020-03-15] MEDS: ACCU-CHEK COMFORT CURVE STRIP VI SCH ×4 (06:02→22:05)
[2020-03-15] MEDS: cloNIDine HCL 0.1 MG TAB PO PRN ×2 (06:03→17:41)
[2020-03-15] MEDS: InsuLIN REG 1unit/0.01ml Soln (100units/ml) SC SCH ×4 (06:05→22:05)
[2020-03-15 08:00] VITALS: BP 138/84
[2020-03-15] MEDS: Glucerna Carbsteady SHAKE Vanilla 8oz PO SCH ×3 (08:15→18:15)
[2020-03-15] MEDS: DULoxetine HCL 30 MG CAP PO SCH (10:48)
[2020-03-15] MEDS: PANTOPRAZOLE 40 MG TAB PO SCH ×2 (10:48→21:58)
[2020-03-15] MEDS: METOPROLOL SUCCINATE XL 50 MG TAB PO SCH ×2 (10:48→21:58)
[2020-03-15] MEDS: FINASTERIDE 5 MG TAB PO SCH (10:49)
[2020-03-15] MEDS: THIAMINE HCL 100 MG TAB PO SCH (10:50)
[2020-03-15] MEDS: MULTIPLE VITAMIN TAB PO SCH (10:50)
[2020-03-15] MEDS: FOLIC ACID 1 MG TAB PO SCH (10:50)
[2020-03-15 16:00] VITALS: BP 187/89
[2020-03-15] MEDS: TAMSULOSIN HYDROCHLORIDE 0.4 MG CAP PO SCH (17:40)
[2020-03-15] MEDS: LABETALOL HCL 5 MG/ML 4ML SYRINGE IV PRN (18:50)
[2020-03-15 22:00] VITALS: BP 190/112
[2020-03-15] MEDS: hydrALAZINE HCL 20 MG/ML VL IV PRN (22:16)
[2020-03-16] VITALS (17 sets, daily range): BP systolic 102–190; BP diastolic 67–111
[2020-03-16] MEDS: hydrALAZINE HCL 20 MG/ML VL IV PRN ×3 (02:10→22:09)
[2020-03-16] MEDS ORDERED: LABETALOL HCL 5 MG/ML 4ML SYRINGE IV PRN (03:30)
[2020-03-16] MEDS: LABETALOL HCL 5 MG/ML 4ML SYRINGE IV PRN (03:35)
[2020-03-16] MEDS: LORazepam 2MG/ML-1ML VIAL IV PRN (05:13)
[2020-03-16] MEDS ORDERED: METOPROLOL TARTRATE 1MG/1ML-5ML VIAL IV PRN ×3 (05:15→12:00)
[2020-03-16] MEDS ORDERED: ACETAMINOPHEN 650 MG RECT SUPP PR PRN (06:00)
[2020-03-16] MEDS: ACCU-CHEK COMFORT CURVE STRIP VI SCH ×4 (06:16→22:00)
[2020-03-16] MEDS: InsuLIN REG 1unit/0.01ml Soln (100units/ml) SC SCH ×4 (06:16→22:00)
[2020-03-16] MEDS: SUCRALFATE 1 GM/10 ML ORAL SUSP PO SCH ×4 (06:43→22:00)
[2020-03-16] MEDS: Glucerna Carbsteady SHAKE Vanilla 8oz PO SCH ×3 (08:00→18:00)
[2020-03-16 08:04] LABS: Basophils # (auto) 0.1 10 ^3/uL (0-0.2); Eosinophils # (auto) 0 10 ^3/uL (0-0.8); Lymphocytes # (auto) 0.6 10 ^3/uL (0.4-5.4); Monocytes # (auto) 0.7 10 ^3/uL (0-1.3)
[2020-03-16 08:06] LABS: Basophils % (auto) 0.4 % (0.0-2.0); Hematocrit 39.8 % (41.0-53.0); Lymphocytes % (auto) 3.6 % (10.0-50.0); Mean Corpuscular Hemoglobin 29.6 pg (28.0-32.0); Mean Corpuscular Hgb Conc. 32.6 g/dL (32.0-36.0); Mean Corpuscular Volume 90.9 fL (80.0-100.0); Monocytes % (auto) 4.1 % (0.0-12.0); Neutrophils # (auto) 14.4 10 ^3/uL (1.6-8.6); Neutrophils % (auto) 91.9 % (37.0-80.0); Platelet Count (auto) 614 10^3/uL (140-450); Red Blood Cells 4.38 10^6/uL (4.5-5.90); White Blood Cell 15.7 10^3/uL (4.4-10.8)
[2020-03-16] MEDS: FINASTERIDE 5 MG TAB PO SCH (10:00)
[2020-03-16] MEDS: PANTOPRAZOLE 40 MG TAB PO SCH ×2 (10:00→22:00)
[2020-03-16] MEDS: THIAMINE HCL 100 MG TAB PO SCH (10:00)
[2020-03-16] MEDS: MULTIPLE VITAMIN TAB PO SCH (10:00)
[2020-03-16] MEDS: FOLIC ACID 1 MG TAB PO SCH (10:00)
[2020-03-16] MEDS: DULoxetine HCL 30 MG CAP PO SCH (10:00)
[2020-03-16] MEDS ORDERED: LORazepam 2MG/ML-1ML VIAL IV PRN (10:30)
[2020-03-16] MEDS ORDERED: METOPROLOL SUCCINATE XL 50 MG TAB PO ONE (10:30)
[2020-03-16] MEDS: levoFLOXacin 500MG 100 ML IV SCH (13:16)
[2020-03-16] MEDS: hydrALAZINE HCL 25 MG TAB PO SCH ×2 (14:00→22:00)
[2020-03-16] MEDS ORDERED: IOHEXOL 350 MG/ML 100ML IJ ONE (14:16)
[2020-03-16] MEDS ORDERED: ENOXAPARIN SOD 80 MG/0.8ML SYRINGE SC ONE (15:30)
[2020-03-16] MEDS ORDERED: LABETALOL HCL 5 MG/ML 4ML SYRINGE IV ONE (15:30)
[2020-03-16 15:48] LABS: Calcium 8.5 mg/dL (8.5-10.1); Potassium 5.1 mmol/L (3.5-5.1)
[2020-03-16] MEDS: CLINDAMYCIN 600MG IV 50 ML IV SCH ×2 (16:55→22:03)
[2020-03-16] MEDS: TAMSULOSIN HYDROCHLORIDE 0.4 MG CAP PO SCH (18:00)
[2020-03-16] MEDS: dilTIAZem 125mg/125ml BAG KIT 125 ML IV SCH (18:19)
[2020-03-16] MEDS: ENOXAPARIN SOD 80 MG/0.8ML SYRINGE SC SCH (22:05)
[2020-03-16] MEDS ORDERED: SODIUM CHLORIDE 0.9% 500 ML IV ONE (22:45)
[2020-03-16] MEDS ORDERED: AMIODARONE HCL 150 MG in D5W 5% 100 ML IV ONE (22:45)
[2020-03-16] MEDS ORDERED: AMIODARONE 450mg/250ml AE 250 ML IV SCH (23:00)
[2020-03-17] VITALS (53 sets, daily range): BP systolic 113–169; BP diastolic 63–100
[2020-03-17] MEDS: hydrALAZINE HCL 25 MG TAB PO SCH ×3 (06:00→22:00)
[2020-03-17] MEDS: CLINDAMYCIN 600MG IV 50 ML IV SCH ×3 (06:00→22:00)
[2020-03-17 06:02] LABS: Basophils # (auto) 0.1 10 ^3/uL (0-0.2); Eosinophils # (auto) 0 10 ^3/uL (0-0.8)
[2020-03-17 06:04] LABS: Basophils % (auto) 0.3 % (0.0-2.0); Hematocrit 32.8 % (41.0-53.0); Hemoglobin 11.1 g/dL (13.5-17.5); Mean Corpuscular Hemoglobin 30.7 pg (28.0-32.0); Mean Corpuscular Volume 90.4 fL (80.0-100.0); Monocytes # (auto) 1.8 10 ^3/uL (0-1.3); Monocytes % (auto) 8.9 % (0.0-12.0); Neutrophils # (auto) 17.2 10 ^3/uL (1.6-8.6); Neutrophils % (auto) 85.8 % (37.0-80.0); Platelet Count (auto) 505 10^3/uL (140-450); Red Blood Cells 3.63 10^6/uL (4.5-5.90); Red Cell Distribution Width 14.5 % (11.8-14.3); White Blood Cell 20.1 10^3/uL (4.4-10.8)
[2020-03-17 06:10] LABS: BUN/Creatinine Ratio 13.6; Calcium 8.6 mg/dL (8.5-10.1); Magnesium 2.2 mg/dL (1.6-2.6); Phosphorus 3.3 mg/dL (2.5-4.90)
[2020-03-17 06:12] LABS: Bilirubin, Total 0.8 mg/dL (0.2-1.0); Total Protein 6.3 g/dL (6.4-8.2)
[2020-03-17] MEDS: AMIODARONE 450mg/250ml AE 250 ML IV SCH ×2 (06:43→17:05)
[2020-03-17] MEDS: SUCRALFATE 1 GM/10 ML ORAL SUSP PO SCH ×4 (06:44→22:00)
[2020-03-17] MEDS: ACCU-CHEK COMFORT CURVE STRIP VI SCH ×4 (06:49→21:00)
[2020-03-17] MEDS: InsuLIN REG 1unit/0.01ml Soln (100units/ml) SC SCH ×4 (06:50→21:00)
[2020-03-17] MEDS: AMIODARONE HCL 200 MG TAB PO SCH ×3 (08:00→22:00)
[2020-03-17] MEDS: Glucerna Carbsteady SHAKE Vanilla 8oz PO SCH ×3 (08:00→17:03)
[2020-03-17] MEDS: levoFLOXacin 500MG 100 ML IV SCH (08:10)
[2020-03-17] MEDS: FOLIC ACID 1 MG TAB PO SCH (08:12)
[2020-03-17] MEDS: FINASTERIDE 5 MG TAB PO SCH (08:13)
[2020-03-17] MEDS: PANTOPRAZOLE 40 MG TAB PO SCH ×2 (08:13→22:00)
[2020-03-17] MEDS: THIAMINE HCL 100 MG TAB PO SCH (08:13)
[2020-03-17] MEDS: MULTIPLE VITAMIN TAB PO SCH (08:13)
[2020-03-17] MEDS: METOPROLOL SUCCINATE XL 50 MG TAB PO SCH (08:13)
[2020-03-17] MEDS: DULoxetine HCL 30 MG CAP PO SCH (08:13)
[2020-03-17] MEDS: ENOXAPARIN SOD 80 MG/0.8ML SYRINGE SC SCH (08:14)
[2020-03-17] MEDS: ENOXAPARIN SOD 40 MG/0.4 ML SYRINGE SC SCH (08:18)
[2020-03-17] MEDS: dilTIAZem 125mg/125ml BAG KIT 125 ML IV SCH (12:41)
[2020-03-17] MEDS: SODIUM CHLORIDE 0.9% 1,000 ML IV SCH ×3 (15:29→22:56)
[2020-03-17] MEDS: TAMSULOSIN HYDROCHLORIDE 0.4 MG CAP PO SCH (17:02)
[2020-03-18] VITALS (40 sets, daily range): BP systolic 98–186; BP diastolic 66–120
[2020-03-18] MEDS: METOPROLOL SUCCINATE XL 50 MG TAB PO SCH (04:15)
[2020-03-18] MEDS: InsuLIN REG 1unit/0.01ml Soln (100units/ml) SC SCH ×4 (05:38→22:00)
[2020-03-18] MEDS: CLINDAMYCIN 600MG IV 50 ML IV SCH ×3 (05:39→22:00)
[2020-03-18] MEDS: SUCRALFATE 1 GM/10 ML ORAL SUSP PO SCH ×4 (06:04→22:00)
[2020-03-18] MEDS: hydrALAZINE HCL 25 MG TAB PO SCH ×3 (06:05→22:00)
[2020-03-18] MEDS: ACCU-CHEK COMFORT CURVE STRIP VI SCH ×4 (06:10→22:00)
[2020-03-18] MEDS: Glucerna Carbsteady SHAKE Vanilla 8oz PO SCH ×3 (08:00→18:00)
[2020-03-18] MEDS: HALOPERIDOL LACTATE 5 MG/ML INJ VIAL IM PRN ×2 (09:45→18:00)
[2020-03-18] MEDS: ENOXAPARIN SOD 40 MG/0.4 ML SYRINGE SC SCH (10:00)
[2020-03-18] MEDS: PANTOPRAZOLE 40 MG TAB PO SCH ×2 (10:00→22:00)
[2020-03-18] MEDS: AMIODARONE HCL 200 MG TAB PO SCH ×2 (10:00→22:00)
[2020-03-18] MEDS: FINASTERIDE 5 MG TAB PO SCH (10:00)
[2020-03-18] MEDS: FOLIC ACID 1 MG TAB PO SCH (10:00)
[2020-03-18] MEDS: DULoxetine HCL 30 MG CAP PO SCH (10:00)
[2020-03-18] MEDS: THIAMINE HCL 100 MG TAB PO SCH (10:00)
[2020-03-18] MEDS: levoFLOXacin 500MG 100 ML IV SCH (10:00)
[2020-03-18] MEDS: MULTIPLE VITAMIN TAB PO SCH (10:00)
[2020-03-18] MEDS: AMIODARONE 450mg/250ml AE 250 ML IV SCH (11:00)
[2020-03-18] MEDS: dilTIAZem 125mg/125ml BAG KIT 125 ML IV SCH (15:30)
[2020-03-18] MEDS: TAMSULOSIN HYDROCHLORIDE 0.4 MG CAP PO SCH (17:31)
[2020-03-18] MEDS: SODIUM CHLORIDE 0.9% 1,000 ML IV SCH (21:30)
[2020-03-19] VITALS (18 sets, daily range): BP systolic 134–184; BP diastolic 81–109
[2020-03-19] MEDS: AMIODARONE 450mg/250ml AE 250 ML IV SCH ×2 (01:35→17:00)
[2020-03-19] MEDS: hydrALAZINE HCL 25 MG TAB PO SCH ×3 (06:00→21:34)
[2020-03-19] MEDS: CLINDAMYCIN 600MG IV 50 ML IV SCH ×3 (06:00→21:34)
[2020-03-19] MEDS: ACCU-CHEK COMFORT CURVE STRIP VI SCH ×4 (07:00→21:34)
[2020-03-19] MEDS: SUCRALFATE 1 GM/10 ML ORAL SUSP PO SCH ×4 (07:00→21:34)
[2020-03-19] MEDS: InsuLIN REG 1unit/0.01ml Soln (100units/ml) SC SCH ×5 (07:00→21:35)
[2020-03-19 09:04] LABS: Eosinophils # (auto) 0.7 10 ^3/uL (0-0.8); Lymphocytes # (auto) 0.8 10 ^3/uL (0.4-5.4)
[2020-03-19 09:06] LABS: Basophils # (auto) 0.1 10 ^3/uL (0-0.2); Basophils % (auto) 0.5 % (0.0-2.0); Eosinophils % (auto) 3.3 % (0.0-7.0); Hematocrit 33.3 % (41.0-53.0); Hemoglobin 11.3 g/dL (13.5-17.5); Lymphocytes % (auto) 3.7 % (10.0-50.0); Mean Corpuscular Hemoglobin 30.4 pg (28.0-32.0); Mean Corpuscular Hgb Conc. 33.9 g/dL (32.0-36.0); Mean Corpuscular Volume 89.4 fL (80.0-100.0); Monocytes # (auto) 0.9 10 ^3/uL (0-1.3); Monocytes % (auto) 4.5 % (0.0-12.0); Neutrophils # (auto) 18.3 10 ^3/uL (1.6-8.6); Platelet Count (auto) 536 10^3/uL (140-450); Red Blood Cells 3.73 10^6/uL (4.5-5.90); Red Cell Distribution Width 14.6 % (11.8-14.3); White Blood Cell 20.8 10^3/uL (4.4-10.8)
[2020-03-19 09:23] LABS: Calcium 7.6 mg/dL (8.5-10.1)
[2020-03-19 09:29] LABS: Albumin 1.9 g/dL (3.4-5.0); BUN/Creatinine Ratio 8.7; Bilirubin, Total 0.4 mg/dL (0.2-1.0); Total Protein 6.1 g/dL (6.4-8.2)
[2020-03-19 09:39] LABS: Potassium 2.7 mmol/L (3.5-5.1)
[2020-03-19] MEDS: Glucerna Carbsteady SHAKE Vanilla 8oz PO SCH ×3 (10:00→17:53)
[2020-03-19] MEDS: FINASTERIDE 5 MG TAB PO SCH (10:00)
[2020-03-19] MEDS: DULoxetine HCL 30 MG CAP PO SCH (10:00)
[2020-03-19] MEDS: SODIUM CHLORIDE 0.9% 1,000 ML IV SCH ×2 (10:00→17:30)
[2020-03-19] MEDS: PANTOPRAZOLE 40 MG TAB PO SCH ×2 (10:00→21:34)
[2020-03-19] MEDS: POTASSIUM CHL 20MEQ/100ML 100 ML IV SCH ×3 (10:00→14:00)
[2020-03-19] MEDS: ENOXAPARIN SOD 40 MG/0.4 ML SYRINGE SC SCH (10:00)
[2020-03-19] MEDS: levoFLOXacin 500MG 100 ML IV SCH (10:00)
[2020-03-19] MEDS: METOPROLOL SUCCINATE XL 50 MG TAB PO SCH (10:00)
[2020-03-19] MEDS: AMIODARONE HCL 200 MG TAB PO SCH ×2 (10:00→21:34)
[2020-03-19] MEDS: THIAMINE HCL 100 MG TAB PO SCH (10:00)
[2020-03-19] MEDS: MULTIPLE VITAMIN TAB PO SCH (10:00)
[2020-03-19] MEDS: FOLIC ACID 1 MG TAB PO SCH (10:00)
[2020-03-19] MEDS: dilTIAZem 125mg/125ml BAG KIT 125 ML IV SCH (15:30)
[2020-03-19] MEDS: TAMSULOSIN HYDROCHLORIDE 0.4 MG CAP PO SCH (17:53)
[2020-03-19] MEDS: ACETAMINOPHEN 325 MG TAB PO PRN (23:35)
[2020-03-20 05:00] VITALS: BP 146/84
[2020-03-20] MEDS: SODIUM CHLORIDE 0.9% 1,000 ML IV SCH ×2 (06:41→13:20)
[2020-03-20] MEDS: hydrALAZINE HCL 25 MG TAB PO SCH ×3 (06:42→21:36)
[2020-03-20] MEDS: CLINDAMYCIN 600MG IV 50 ML IV SCH ×2 (06:42→13:42)
[2020-03-20] MEDS: ACCU-CHEK COMFORT CURVE STRIP VI SCH ×4 (06:43→21:36)
[2020-03-20] MEDS: SUCRALFATE 1 GM/10 ML ORAL SUSP PO SCH ×4 (06:43→21:36)
[2020-03-20] MEDS: InsuLIN REG 1unit/0.01ml Soln (100units/ml) SC SCH ×4 (07:19→21:50)
[2020-03-20] MEDS: Glucerna Carbsteady SHAKE Vanilla 8oz PO SCH ×3 (08:00→17:55)
[2020-03-20 08:17] VITALS: BP 141/90
[2020-03-20] MEDS: METOPROLOL SUCCINATE XL 50 MG TAB PO SCH (09:47)
[2020-03-20] MEDS: levoFLOXacin 500MG 100 ML IV SCH (09:47)
[2020-03-20] MEDS: PANTOPRAZOLE 40 MG TAB PO SCH ×2 (09:48→21:36)
[2020-03-20] MEDS: DULoxetine HCL 30 MG CAP PO SCH (09:48)
[2020-03-20] MEDS: FOLIC ACID 1 MG TAB PO SCH (09:48)
[2020-03-20] MEDS: FINASTERIDE 5 MG TAB PO SCH (09:48)
[2020-03-20] MEDS: ENOXAPARIN SOD 40 MG/0.4 ML SYRINGE SC SCH (09:48)
[2020-03-20] MEDS: AMIODARONE HCL 200 MG TAB PO SCH ×2 (09:48→21:36)
[2020-03-20] MEDS: THIAMINE HCL 100 MG TAB PO SCH (09:48)
[2020-03-20] MEDS: MULTIPLE VITAMIN TAB PO SCH (09:48)
[2020-03-20 11:27] LABS: Calcium 7.5 mg/dL (8.5-10.1)
[2020-03-20 11:30] LABS: BUN/Creatinine Ratio 8.6; Bilirubin, Total 0.4 mg/dL (0.2-1.0); Total Protein 6.1 g/dL (6.4-8.2)
[2020-03-20 15:50] VITALS: BP 124/79
[2020-03-20] MEDS: TAMSULOSIN HYDROCHLORIDE 0.4 MG CAP PO SCH (17:55)
[2020-03-20 22:00] VITALS: BP 125/88
[2020-03-20] MEDS ORDERED: CLINDAMYCIN HCL 150 MG CAP PO SCH (22:00)
[2020-03-20] MEDS: ACETAMINOPHEN 325 MG TAB PO PRN (23:55)
[2020-03-21 05:00] VITALS: BP 133/72
[2020-03-21] MEDS: SUCRALFATE 1 GM/10 ML ORAL SUSP PO SCH ×4 (06:44→22:31)
[2020-03-21] MEDS: InsuLIN REG 1unit/0.01ml Soln (100units/ml) SC SCH ×4 (06:45→22:31)
[2020-03-21] MEDS: ACCU-CHEK COMFORT CURVE STRIP VI SCH ×4 (06:45→22:32)
[2020-03-21 07:53] VITALS: BP 147/79
[2020-03-21] MEDS: Glucerna Carbsteady SHAKE Vanilla 8oz PO SCH ×3 (08:00→18:00)
[2020-03-21] MEDS: AMIODARONE HCL 200 MG TAB PO SCH ×2 (10:16→22:31)
[2020-03-21] MEDS: THIAMINE HCL 100 MG TAB PO SCH (10:16)
[2020-03-21] MEDS: FOLIC ACID 1 MG TAB PO SCH (10:16)
[2020-03-21] MEDS: DULoxetine HCL 30 MG CAP PO SCH (10:17)
[2020-03-21] MEDS: MULTIPLE VITAMIN TAB PO SCH (10:17)
[2020-03-21] MEDS: FINASTERIDE 5 MG TAB PO SCH (10:18)
[2020-03-21] MEDS: PANTOPRAZOLE 40 MG TAB PO SCH ×2 (10:21→22:31)
[2020-03-21] MEDS: METOPROLOL SUCCINATE XL 50 MG TAB PO SCH (10:25)
[2020-03-21] MEDS: ENOXAPARIN SOD 40 MG/0.4 ML SYRINGE SC SCH (10:25)
[2020-03-21 15:43] VITALS: BP 144/92
[2020-03-21] MEDS: ACETAMINOPHEN 325 MG TAB PO PRN (15:48)
[2020-03-21] MEDS: CLINDAMYCIN HCL 150 MG CAP PO SCH ×2 (15:54→22:31)
[2020-03-21] MEDS: hydrALAZINE HCL 25 MG TAB PO SCH ×2 (15:54→22:30)
[2020-03-21] MEDS: TAMSULOSIN HYDROCHLORIDE 0.4 MG CAP PO SCH (18:59)
[2020-03-21 21:43] VITALS: BP 142/74
[2020-03-22] MEDS: ACETAMINOPHEN 325 MG TAB PO PRN (01:50)
[2020-03-22 05:39] VITALS: BP 147/77
[2020-03-22] MEDS: SUCRALFATE 1 GM/10 ML ORAL SUSP PO SCH ×2 (06:29→12:16)
[2020-03-22] MEDS: InsuLIN REG 1unit/0.01ml Soln (100units/ml) SC SCH ×2 (06:29→12:17)
[2020-03-22] MEDS: hydrALAZINE HCL 25 MG TAB PO SCH ×2 (06:29→13:59)
[2020-03-22] MEDS: CLINDAMYCIN HCL 150 MG CAP PO SCH ×2 (06:29→13:59)
[2020-03-22] MEDS: ACCU-CHEK COMFORT CURVE STRIP VI SCH ×2 (06:30→12:16)
[2020-03-22 08:00] VITALS: BP 155/89
[2020-03-22] MEDS: Glucerna Carbsteady SHAKE Vanilla 8oz PO SCH ×2 (08:14→12:00)
[2020-03-22] MEDS: AMIODARONE HCL 200 MG TAB PO SCH (09:43)
[2020-03-22] MEDS: THIAMINE HCL 100 MG TAB PO SCH (09:43)
[2020-03-22] MEDS: FOLIC ACID 1 MG TAB PO SCH (09:43)
[2020-03-22] MEDS: MULTIPLE VITAMIN TAB PO SCH (09:44)
[2020-03-22] MEDS: DULoxetine HCL 30 MG CAP PO SCH (09:44)
[2020-03-22] MEDS: FINASTERIDE 5 MG TAB PO SCH (09:44)
[2020-03-22] MEDS: METOPROLOL SUCCINATE XL 50 MG TAB PO SCH (09:45)
[2020-03-22] MEDS: PANTOPRAZOLE 40 MG TAB PO SCH (09:45)
[2020-03-22] MEDS: ENOXAPARIN SOD 40 MG/0.4 ML SYRINGE SC SCH (09:46)
[2020-03-22 14:38] VITALS: BP 162/92
== END 2020-03-22 16:12 | DRG 871 ==
LOC: ER 14:10 → EDSEX 14:10 → EDBD 14:10 → TELE 14:11 → TELE-CENTR 03-07 23:01 → CATH ICU 03-16 17:20 → TELE-EAST 03-19 16:22 → UNDODISIN 03-21 00:28 → TELE-WESTW 03-22 14:10
PROVIDERS: ADMIT Hospitalist; ATTEND Family Medicine
DX: A41.9 Sepsis, unspecified organism (principal); J69.0 Pneumonitis due to inhalation of food and vomit; K29.21 Alcoholic gastritis with bleeding; K57.31 Diverticulosis of large intestine without perforation or abscess with bleeding; G92 Toxic encephalopathy; E87.2 Acidosis; I42.6 Alcoholic cardiomyopathy; F10.239 Alcohol dependence with withdrawal, unspecified; D68.69 Other thrombophilia; N39.0 Urinary tract infection, site not specified; J44.1 Chronic obstructive pulmonary disease with (acute) exacerbation; E51.2 Wernicke's encephalopathy; K70.10 Alcoholic hepatitis without ascites; F10.229 Alcohol dependence with intoxication, unspecified; I48.0 Paroxysmal atrial fibrillation; K57.30 Diverticulosis of large intestine without perforation or abscess without bleeding; D69.6 Thrombocytopenia, unspecified; E11.21 Type 2 diabetes mellitus with diabetic nephropathy; E78.5 Hyperlipidemia, unspecified; E87.5 Hyperkalemia; Y90.8 Blood alcohol level of 240 mg/100 ml or more; F32.9 Major depressive disorder, single episode, unspecified; K76.0 Fatty (change of) liver, not elsewhere classified; I10 Essential (primary) hypertension; F41.9 Anxiety disorder, unspecified; I67.2 Cerebral atherosclerosis; F09 Unspecified mental disorder due to known physiological condition; F10.26 Alcohol dependence with alcohol-induced persisting amnestic disorder; F17.210 Nicotine dependence, cigarettes, uncomplicated; N40.0 Benign prostatic hyperplasia without lower urinary tract symptoms; Z20.822 Contact with and (suspected) exposure to COVID-19; Z82.49 Family history of ischemic heart disease and other diseases of the circulatory system; Z83.3 Family history of diabetes mellitus; Z86.73 Personal history of transient ischemic attack (TIA), and cerebral infarction without residual deficits; Z87.828 Personal history of other (healed) physical injury and trauma; G31.84 Mild cognitive impairment of uncertain or unknown etiology; E87.6 Hypokalemia; G93.89 Other specified disorders of brain; E78.00 Pure hypercholesterolemia, unspecified; K21.9 Gastro-esophageal reflux disease without esophagitis; Z88.0 Allergy status to penicillin
CPT/HCPCS: 36415; 70450; 71045; 71275; 74176; 76775; 80048; 80053; 80061; 80202; 80307; 80320; 81001; 82140; 82306; 82550; 82607; 82962; 83036; 83605; 83690; 83735; 83880; 84100; 84443; 84484; 85007; 85025; 85027; 85610; 85730; 86850; 86900; 86901; 87040; 87081; 87086; 87426; 93005; 93306; 96365; 97530; 99291; G0378; J0153; J1815; J1956; J2405; J2543; J3480; J3490; J7060

== ENCOUNTER 2020-08-19 13:43 | Emergency (ER) | payer OTHER, MEDICAID ==
[~2020-08-19] VITALS: Ht 172.7 cm; Wt 79.4 kg
[~2020-08-19 13:43] MED LIST changes: +ACET-1304 PO; -AML5T PO; +AMLO-496 PO; +ASCO100076 PO; -ASPI-231 PO; +BISO5TAB44 PO; +DULO1CAP4 PO; -ESCI-34 PO; +GARL200T PO; -GLIP2.5T28 PO; -HYDR-4833 PO; +OMEG306C PO; -ROSU10TA16 PO; -TRAZ100T3 PO; +TRAZ50TA2 PO
[2020-08-19] MEDS ORDERED: SODIUM CHLORIDE 0.9% 1,000 ML IV ONE ×3 (14:15→16:00)
[2020-08-19 14:37] LABS: Basophils # (auto) 0.1 10 ^3/uL (0-0.2); Basophils % (auto) 0.3 % (0.0-2.0); Eosinophils # (auto) 0 10 ^3/uL (0-0.8); Eosinophils % (auto) 0.1 % (0.0-7.0); Hemoglobin 15.7 g/dL (13.5-17.5); Lymphocytes # (auto) 1.5 10 ^3/uL (0.4-5.4); Lymphocytes % (auto) 6.6 % (10.0-50.0); Mean Corpuscular Hemoglobin 30.9 pg (28.0-32.0); Mean Corpuscular Volume 90.8 fL (80.0-100.0); Monocytes # (auto) 0.9 10 ^3/uL (0-1.3); Monocytes % (auto) 3.9 % (0.0-12.0); Neutrophils # (auto) 20.6 10 ^3/uL (1.6-8.6); Neutrophils % (auto) 89.1 % (37.0-80.0); Nucleated Red Blood Cells % 0.1 %; Red Blood Cells 5.07 10^6/uL (4.5-5.90); Red Cell Distribution Width 16.1 % (11.8-14.3); White Blood Cell 23.2 10^3/uL (4.4-10.8)
[2020-08-19 14:49] LABS: Albumin 3.7 g/dL (3.4-5.0); BUN/Creatinine Ratio 16.2; Calcium 8.9 mg/dL (8.5-10.1); Potassium 4.7 mmol/L (3.5-5.1)
[2020-08-19 14:52] LABS: Bilirubin, Total 0.5 mg/dL (0.2-1.0); Total Protein 7.4 g/dL (6.4-8.2)
[2020-08-19] MEDS ORDERED: THIAMINE 100mg/ml INJ (200mg/2ml VIAL) IV ONE (16:00)
[2020-08-19] MEDS ORDERED: ASPirin 81 mg TAB PO ONE (17:45)
[2020-08-19 23:15] VITALS: BP 143/77
== END 2020-08-19 23:40 | disposition short-term general hospital (02) ==
LOC: EDBD 13:43 → ER 13:43
DX: I63.9 Cerebral infarction, unspecified (principal); F10.10 Alcohol abuse, uncomplicated; F17.210 Nicotine dependence, cigarettes, uncomplicated; E11.9 Type 2 diabetes mellitus without complications; E78.5 Hyperlipidemia, unspecified; I10 Essential (primary) hypertension; Z88.0 Allergy status to penicillin
CPT/HCPCS: 36415; 70450; 80053; 80320; 85025; 85049; 96361; 96374; 99285; J3411; J7030

== ENCOUNTER 2020-10-06 11:19 | Emergency (ER) | payer OTHER, MEDICAID ==
[~2020-10-06] VITALS: Ht 180.3 cm; Wt 86.2 kg
[2020-10-06] MEDS ORDERED: ONDANSETRON HCL 4 MG/2 ML VIAL IV ONE (11:45)
[2020-10-06] MEDS ORDERED: PANTOPRAZOLE 40 MG/10 ML VIAL INJ IV ONE (11:45)
[2020-10-06] MEDS ORDERED: SODIUM CHLORIDE 0.9% 1,000 ML IV ONE (11:45)
[2020-10-06 12:04] LABS: Basophils # (auto) 0 10 ^3/uL (0-0.2); Basophils % (auto) 0.3 % (0.0-2.0); Eosinophils # (auto) 0 10 ^3/uL (0-0.8); Eosinophils % (auto) 0.2 % (0.0-7.0); Hematocrit 42.7 % (41.0-53.0); Hemoglobin 14.4 g/dL (13.5-17.5); Lymphocytes # (auto) 0.6 10 ^3/uL (0.4-5.4); Lymphocytes % (auto) 5.1 % (10.0-50.0); Mean Corpuscular Hemoglobin 32.2 pg (28.0-32.0); Mean Corpuscular Hgb Conc. 33.7 g/dL (32.0-36.0); Mean Corpuscular Volume 95.6 fL (80.0-100.0); Monocytes # (auto) 0.6 10 ^3/uL (0-1.3); Monocytes % (auto) 4.6 % (0.0-12.0); Neutrophils # (auto) 11.2 10 ^3/uL (1.6-8.6); Neutrophils % (auto) 89.8 % (37.0-80.0); Red Blood Cells 4.47 10^6/uL (4.5-5.90); Red Cell Distribution Width 17.3 % (11.8-14.3); White Blood Cell 12.5 10^3/uL (4.4-10.8)
[2020-10-06 12:18] LABS: Chloride 104 mmol/L (98-107); Potassium 4.8 mmol/L (3.5-5.1); Sodium 136 mmol/L (136-145)
[2020-10-06 12:29] LABS: Alanine Aminotransferase 54 U/L (16-61); Albumin 3.5 g/dL (3.4-5.0); Alkaline Phosphatase 80 U/L (45-117); Anion Gap 6 (5-15); Aspartate Aminotransferase 51 U/L (15-37); BUN/Creatinine Ratio 13.2; Bilirubin, Total 0.8 mg/dL (0.2-1.0); Blood Alcohol < 3.0 mg/dL (0-5); Blood Urea Nitrogen 12 mg/dL (7-18); Calcium 8.5 mg/dL (8.5-10.1); Carbon Dioxide 26 mmol/L (21-32); GFR African American 107 mL/min; GFR Non-African American 89 mL/min; Glucose 232 mg/dL (74-106); Lipase 37 U/L (73-393); Magnesium 2.1 mg/dL (1.6-2.6); Total Protein 7.3 g/dL (6.4-8.2)
[2020-10-06] MEDS ORDERED: ACETAMINOPHEN 325 MG TAB PO ONE (15:30)
[2020-10-06 18:51] VITALS: BP 160/91
== END 2020-10-06 20:00 | disposition home or self-care (01) ==
LOC: EDBD 11:19 → ER 11:19
DX: I10 Essential (primary) hypertension (principal); F10.10 Alcohol abuse, uncomplicated; K92.0 Hematemesis; R51.9 Headache, unspecified; M54.2 Cervicalgia; E78.5 Hyperlipidemia, unspecified; F17.210 Nicotine dependence, cigarettes, uncomplicated; Z86.73 Personal history of transient ischemic attack (TIA), and cerebral infarction without residual deficits; Z79.1 Long term (current) use of non-steroidal anti-inflammatories (NSAID); Z79.899 Other long term (current) drug therapy; Z88.0 Allergy status to penicillin; W01.0XXA Fall on same level from slipping, tripping and stumbling without subsequent striking against object, initial encounter; Y93.89 Activity, other specified; Y92.89 Other specified places as the place of occurrence of the external cause; Y99.8 Other external cause status; Y90.0 Blood alcohol level of less than 20 mg/100 ml
CPT/HCPCS: 36415; 70450; 74176; 80053; 80320; 83690; 83735; 84484; 85025; 93005; 96361; 96374; 96375; 99285; C9113; J2405; J7030

== ENCOUNTER 2021-01-01 20:31 | Emergency (ER) | payer OTHER, MEDICAID ==
[~2021-01-01] VITALS: Ht 177.8 cm; Wt 77.1 kg
[2021-01-01 20:53] LABS: Basophils # (auto) 0.1 10 ^3/uL (0-0.2); Basophils % (auto) 0.8 % (0.0-2.0); Eosinophils # (auto) 0.1 10 ^3/uL (0-0.8); Eosinophils % (auto) 0.9 % (0.0-7.0); Hematocrit 46.5 % (41.0-53.0); Hemoglobin 15.1 g/dL (13.5-17.5); Lymphocytes # (auto) 1.2 10 ^3/uL (0.4-5.4); Lymphocytes % (auto) 10.2 % (10.0-50.0); Mean Corpuscular Hemoglobin 31.7 pg (28.0-32.0); Mean Corpuscular Hgb Conc. 32.5 g/dL (32.0-36.0); Mean Corpuscular Volume 97.6 fL (80.0-100.0); Neutrophils # (auto) 9.6 10 ^3/uL (1.6-8.6); Neutrophils % (auto) 80.1 % (37.0-80.0); Nucleated Red Blood Cells % 0.1 %; Red Blood Cells 4.77 10^6/uL (4.5-5.90); Red Cell Distribution Width 14.6 % (11.8-14.3)
[2021-01-01 21:11] LABS: Albumin 3.6 g/dL (3.4-5.0); Calcium 8.5 mg/dL (8.5-10.1); Magnesium 2.6 mg/dL (1.6-2.6); Potassium 4.8 mmol/L (3.5-5.1)
[2021-01-01 21:19] LABS: BUN/Creatinine Ratio 19.6; Bilirubin, Total 0.3 mg/dL (0.2-1.0); Total Protein 7.3 g/dL (6.4-8.2)
[2021-01-01 22:23] LABS: Urine Bacteria NONE SEEN /hpf (None Seen); Urine Blood Negative /uL (Negative); Urine Hyaline Cast MOD /lpf (0 - 2); Urine Mucus FEW (None Seen); Urine Specific Gravity 1.019 (1.001-1.035); Urine WBC 2 /hpf (0 - 3)
[2021-01-01 23:31] VITALS: BP 135/62
== END 2021-01-02 03:43 | disposition home or self-care (01) ==
LOC: EDBD 20:31 → ER 20:31
DX: F10.129 Alcohol abuse with intoxication, unspecified (principal); R55 Syncope and collapse; F17.210 Nicotine dependence, cigarettes, uncomplicated; I10 Essential (primary) hypertension; E11.9 Type 2 diabetes mellitus without complications; E78.5 Hyperlipidemia, unspecified; Y90.9 Presence of alcohol in blood, level not specified; Z86.73 Personal history of transient ischemic attack (TIA), and cerebral infarction without residual deficits; Z20.822 Contact with and (suspected) exposure to COVID-19; Z88.0 Allergy status to penicillin; Z79.899 Other long term (current) drug therapy
CPT/HCPCS: 36415; 71045; 80053; 80320; 81001; 83735; 84484; 85025; 87426; 93005

== ENCOUNTER 2023-12-13 10:00 | Inpatient (IN) | payer MEDICAID, OTHER ==
[~2023-12-13] VITALS: Ht 180.3 cm; Wt 75.9 kg
[~2023-12-13 10:00] MED LIST changes: +AMIO200T33 PO; -AMLO-496 PO; +AMLO1TAB23 PO; +GLIP10TA9 PO; +HYDR50TA47 PO; +IBUP-1454 PO; -IBUP600T27 PO; +METF-929 PO; +TRAZ-227 PO; -TRAZ50TA2 PO
[2023-12-13 12:16] LABS: Chloride 98 mmol/L (98-107); Sodium 135 mmol/L (136-145)
[2023-12-13 12:17] LABS: Anion Gap 25 (5-15); Calcium 9.5 mg/dL (8.7-10.4); Carbon Dioxide 12 mmol/L (20-31); Platelet Count (auto) 290 10^3/uL (140-450)
[2023-12-13 12:18] LABS: Hematocrit 52.2 % (41.0-53.0); Hemoglobin 16.7 g/dL (13.5-17.5); Mean Corpuscular Hgb Conc. 31.9 g/dL (32.0-36.0); Mean Corpuscular Volume 100.1 fL (80.0-100.0); Red Blood Cells 5.21 10^6/uL (4.5-5.90); Red Cell Distribution Width 15.1 % (11.8-14.3)
[2023-12-13 12:20] LABS: White Blood Cell 30.6 10^3/uL (4.4-10.8)
[2023-12-13 12:22] LABS: BUN/Creatinine Ratio 18.1 (10.0-20.0); Basophils % (manual) 0 (0.0-2.0); Blast Cells 0; Blood Urea Nitrogen 41 mg/dL (9-23); Eosinophils % (manual) 0 (0-7); Glucose 175 mg/dL (74-106); Metamyelocytes % 0; Myelocytes % 0; Promyelocytes % 0; Reactive Lymphocytes 0
[2023-12-13 12:23] LABS: Blood Alcohol 4.4 mg/dL (<10)
[2023-12-13 12:34] LABS: Potassium 5.8 mmol/L (3.5-5.1)
[2023-12-13 13:00] VITALS: PULSE 102; RESP 18; O2SAT 95
[2023-12-13 13:02] LABS: Urine Bacteria FEW /hpf (None Seen); Urine Blood TRACE /uL (Negative); Urine Clarity Turbid (Clear); Urine Color Yellow (Yellow); Urine Hyaline Cast MANY /lpf (0 - 2); Urine Mucus FEW (None Seen); Urine Protein, UAD 1+ (Negative); Urine Specific Gravity 1.016 (1.001-1.035); Urine Urobilinogen Normal (Negative); Urine WBC 2 /hpf (0 - 3)
[2023-12-13] MEDS: ONDANSETRON HCL 4 MG/2 ML VIAL IV ONE (13:17)
[2023-12-13] MEDS: CALCIUM GLUC 1,000mg/50ml-NS 50 ML IV SCH (13:17)
[2023-12-13] MEDS: DEXTROSE (50%) 50ML SYRG IV ONE (13:34)
[2023-12-13] MEDS: SODIUM BICARB 8.4% 50Meq/50ml SYR Vial IV ONE (13:34)
[2023-12-13] MEDS: InsuLIN REG 1unit/0.01ml Soln (100units/ml) IV ONE (13:36)
[2023-12-13] MEDS: CEFEPIME 2GM/50ML NS 50 ML IV ONE (14:02)
[2023-12-13] MEDS: SODIUM CHLORIDE 0.9% 1,000 ML IV ONE ×2 (14:04→16:42)
[2023-12-13 14:08] LABS: Band Neutrophils % (manual) 12; Lymphocytes % (manual) 2 (10.0-50.0); Monocytes % (manual) 9 (0-12)
[2023-12-13 14:09] LABS: Platelet Estimate Adequate
[2023-12-13] MEDS: VANCOMYCIN 1GM/200ML PREMIX 200 ML IV ONE (16:44)
[2023-12-13 17:13] LABS: Anion Gap 25 (5-15); Calcium 8.5 mg/dL (8.7-10.4); Carbon Dioxide 16 mmol/L (20-31); Chloride 94 mmol/L (98-107); Potassium 5.1 mmol/L (3.5-5.1); Sodium 135 mmol/L (136-145)
[2023-12-13] MEDS ORDERED: VANCOMYCIN PER PHARMACY 0 MG IV SCH (17:15)
[2023-12-13] MEDS ORDERED: ACETAMINOPHEN 325 MG TAB PO PRN (17:15)
[2023-12-13] MEDS ORDERED: HYDROcodone-ACET 5/325MG TAB PO PRN (17:15)
[2023-12-13] MEDS ORDERED: DOCUSATE SOD 100 MG CAP PO PRN (17:15)
[2023-12-13] MEDS ORDERED: hydrALAZINE HCL 20 MG/ML VL IV PRN (17:15)
[2023-12-13] MEDS ORDERED: ONDANSETRON HCL 4 MG/2 ML VIAL IV PRN (17:15)
[2023-12-13 17:19] LABS: BUN/Creatinine Ratio 20.3 (10.0-20.0); Blood Urea Nitrogen 43 mg/dL (9-23)
[2023-12-13 17:20] LABS: Glucose 352 mg/dL (74-106)
[2023-12-13 17:28] LABS: Lactic Acid w/Reflex 3.4 mmol/L (0.4-2.0)
[2023-12-13] MEDS ORDERED: DEXTROSE (50%) 50ML SYRG IV PRN ×2 (17:30→19:15)
[2023-12-13] MEDS: ASPirin 81 mg TAB PO ONE (18:04)
[2023-12-13] MEDS: SODIUM ZIRCONIUM CYCL 10 GM PAK PO ONE (18:05)
[2023-12-13] MEDS: SODIUM CHLORIDE 0.9% 1,000 ML IV SCH (18:05)
[2023-12-13] MEDS ORDERED: MORPHINE SULFATE INJ 2 MG/ml SYRG IV PRN (19:15)
[2023-12-13] MEDS ORDERED: NITROGLYCERIN 0.4 MG SL TAB SL PRN (19:15)
[2023-12-13 20:00] VITALS: TEMP 98.7
[2023-12-13 20:02] LABS: Base Excess -9.7 mmol/L (-2.0-3.0)
[2023-12-13 20:27] LABS: Chloride 102 mmol/L (98-107); Potassium 4.9 mmol/L (3.5-5.1); Sodium 136 mmol/L (136-145)
[2023-12-13 20:28] LABS: Anion Gap 17 (5-15); Calcium 7.4 mg/dL (8.7-10.4); Carbon Dioxide 17 mmol/L (20-31)
[2023-12-13 20:33] LABS: BUN/Creatinine Ratio 17.6 (10.0-20.0); Blood Urea Nitrogen 33 mg/dL (9-23); Glucose 314 mg/dL (74-106)
[2023-12-13 20:37] LABS: Magnesium 1.7 mg/dL (1.6-2.6)
[2023-12-13 20:39] LABS: Phosphorus 4.5 mg/dL (2.4-5.1)
[2023-12-13] MEDS: ACCU-CHEK COMFORT CURVE STRIP VI SCH (20:44)
[2023-12-13] MEDS: INSULIN LANTUS (GLARGINE) 1 /0.01ml (100units/ml) SC ONE (20:45)
[2023-12-13] MEDS: INSULIN DRIP 100 UNIT/100ML 100 ML IV SCH (21:00)
[2023-12-13 21:04] VITALS: O2SAT 97
[2023-12-13 22:00] VITALS: PULSE 88
[2023-12-13] MEDS ORDERED: ACCU-CHEK COMFORT CURVE STRIP VI SCH (22:00)
[2023-12-13] MEDS ORDERED: InsuLIN REG 1unit/0.01ml Soln (100units/ml) SC SCH (22:00)
[2023-12-14] VITALS (8 sets, daily range): BP systolic 118–137; BP diastolic 70–87; PULSE 74–98; RESP 16–20; TEMP 98.1–98.9; O2SAT 94–96
[2023-12-14] MEDS: INSULIN DRIP 100 UNIT/100ML 100 ML IV SCH (00:15)
[2023-12-14] MEDS: SODIUM CHLORIDE 0.9% 1,000 ML IV SCH ×2 (01:23→14:37)
[2023-12-14 02:12] LABS: Chloride 105 mmol/L (98-107); Potassium 4.3 mmol/L (3.5-5.1); Sodium 136 mmol/L (136-145)
[2023-12-14 02:13] LABS: Anion Gap 8 (5-15); Calcium 7.9 mg/dL (8.7-10.4); Carbon Dioxide 23 mmol/L (20-31)
[2023-12-14 02:18] LABS: BUN/Creatinine Ratio 17.8 (10.0-20.0); Blood Urea Nitrogen 28 mg/dL (9-23)
[2023-12-14 02:20] LABS: Glucose 152 mg/dL (74-106)
[2023-12-14] MEDS ORDERED: DEXTROSE (50%) 50ML SYRG IV PRN (03:45)
[2023-12-14] MEDS: InsuLIN REG 1unit/0.01ml Soln (100units/ml) SC SCH (04:00)
[2023-12-14] MEDS: ACCU-CHEK COMFORT CURVE STRIP VI SCH (04:26)
[2023-12-14 06:24] LABS: Alanine Aminotransferase 55 U/L (7-40); Albumin 3.7 g/dL (3.2-4.8); Alkaline Phosphatase 54 U/L (46-116); Anion Gap 6 (5-15); Aspartate Aminotransferase 50 U/L (13-40); BUN/Creatinine Ratio 20.7 (10.0-20.0); Basophils # (auto) 0.1 10 ^3/uL (0-0.2); Basophils % (auto) 0.4 % (0.0-2.0); Bilirubin, Total 0.7 mg/dL (0.2-1.0); Blood Urea Nitrogen 30 mg/dL (9-23); Calcium 8.2 mg/dL (8.7-10.4); Carbon Dioxide 26 mmol/L (20-31); Chloride 105 mmol/L (98-107); Eosinophils # (auto) 0.1 10 ^3/uL (0-0.8); Eosinophils % (auto) 0.3 % (0.0-7.0); Glucose 64 mg/dL (74-106); Hematocrit 40.6 % (41.0-53.0); Hemoglobin 13.7 g/dL (13.5-17.5); Lymphocytes % (auto) 4.3 % (10.0-50.0); Mean Corpuscular Hemoglobin 32.3 pg (28.0-32.0); Mean Corpuscular Hgb Conc. 33.8 g/dL (32.0-36.0); Mean Corpuscular Volume 95.6 fL (80.0-100.0); Monocytes # (auto) 1.3 10 ^3/uL (0-1.3); Monocytes % (auto) 5.4 % (0.0-12.0); Neutrophils # (auto) 20.8 10 ^3/uL (1.6-8.6); Neutrophils % (auto) 89.6 % (37.0-80.0); Platelet Count (auto) 204 10^3/uL (140-450); Red Blood Cells 4.25 10^6/uL (4.5-5.90); Red Cell Distribution Width 13.8 % (11.8-14.3); Sodium 137 mmol/L (136-145); Total Protein 5.8 g/dL (5.7-8.2); White Blood Cell 23.2 10^3/uL (4.4-10.8)
[2023-12-14] MEDS ORDERED: InsuLIN REG 1unit/0.01ml Soln (100units/ml) SC SCH (07:00)
[2023-12-14 08:04] LABS: INR 1.14 (0.9-1.15); Partial Thromboplastin Time 28.5 SEC (24.5-34.5)
[2023-12-14 08:11] LABS: Magnesium 1.9 mg/dL (1.6-2.6)
[2023-12-14 08:13] LABS: Phosphorus 2.9 mg/dL (2.4-5.1)
[2023-12-14 09:06] LABS: Free T4 (Free Thyroxine) 1.46 ng/dL (0.89-1.76); T3 Total 0.4 ng/mL (0.60-1.81)
[2023-12-14] MEDS ORDERED: INSULIN LANTUS (GLARGINE) 1 /0.01ml (100units/ml) SC SCH (10:00)
[2023-12-14] MEDS: ASPirin 81 mg TAB PO SCH (10:14)
[2023-12-14] MEDS: CEFEPIME 1GM/ 50ML 50 ML IV ONE (10:58)
[2023-12-14 12:24] LABS: Anion Gap 5 (5-15); Carbon Dioxide 28 mmol/L (20-31); Chloride 104 mmol/L (98-107); Potassium 3.8 mmol/L (3.5-5.1); Sodium 137 mmol/L (136-145)
[2023-12-14 12:25] LABS: Calcium 8.2 mg/dL (8.7-10.4)
[2023-12-14 12:29] LABS: Glucose 131 mg/dL (74-106)
[2023-12-14 12:31] LABS: BUN/Creatinine Ratio 19.7 (10.0-20.0); Blood Urea Nitrogen 26 mg/dL (9-23)
[2023-12-14] MEDS: PANTOPRAZOLE 40 MG/10 ML VIAL INJ IV ONE (14:35)
[2023-12-14] MEDS: THIAMINE 100mg/ml INJ (200mg/2ml VIAL) IV ONE (14:35)
[2023-12-14] MEDS: FOLIC ACID 1 MG in D5W 5% 50 ML INJ ONE (14:36)
[2023-12-14] MEDS: MEROPENEM 1GM IVPB 50 ML IV ONE (14:36)
[2023-12-14 14:56] LABS: Magnesium 1.8 mg/dL (1.6-2.6)
[2023-12-14 14:57] LABS: Phosphorus 3.2 mg/dL (2.4-5.1)
[2023-12-14] MEDS: VANCOMYCIN 1GM/200ML PREMIX 200 ML IV SCH (16:17)
[2023-12-14] MEDS: FOLIC ACID 1 MG, MAGNESIUM SULF SDV 50% 8 MEQ, MULTIPLE VITAMIN 10 ML, THIAMINE INJ 100... INJ SCH (19:06)
[2023-12-14] MEDS ORDERED: CEFEPIME 1GM/ 50ML 50 ML IV SCH (22:00)
[2023-12-14] MEDS: MEROPENEM 1GM IVPB 50 ML IV SCH (22:38)
[2023-12-15] VITALS (8 sets, daily range): BP systolic 124–155; BP diastolic 72–89; PULSE 64–79; RESP 17–20; TEMP 98–98.5; O2SAT 91–96
[2023-12-15 05:48] LABS: Basophils # (auto) 0.1 10 ^3/uL (0-0.2); Basophils % (auto) 0.3 % (0.0-2.0); Eosinophils # (auto) 0.5 10 ^3/uL (0-0.8); Eosinophils % (auto) 2.8 % (0.0-7.0); Hematocrit 39.5 % (41.0-53.0); Hemoglobin 13.2 g/dL (13.5-17.5); Lymphocytes # (auto) 1.3 10 ^3/uL (0.4-5.4); Lymphocytes % (auto) 8.1 % (10.0-50.0); Mean Corpuscular Hgb Conc. 33.3 g/dL (32.0-36.0); Mean Corpuscular Volume 96.1 fL (80.0-100.0); Monocytes # (auto) 0.8 10 ^3/uL (0-1.3); Monocytes % (auto) 4.9 % (0.0-12.0); Neutrophils # (auto) 13.7 10 ^3/uL (1.6-8.6); Neutrophils % (auto) 83.9 % (37.0-80.0); Platelet Count (auto) 178 10^3/uL (140-450); Red Blood Cells 4.12 10^6/uL (4.5-5.90); Red Cell Distribution Width 14.4 % (11.8-14.3); White Blood Cell 16.3 10^3/uL (4.4-10.8)
[2023-12-15 06:07] LABS: Alanine Aminotransferase 42 U/L (7-40); Albumin 3.3 g/dL (3.2-4.8); Alkaline Phosphatase 56 U/L (46-116); Anion Gap 6 (5-15); Aspartate Aminotransferase 36 U/L (13-40); BUN/Creatinine Ratio 21.7 (10.0-20.0); Bilirubin, Total 0.6 mg/dL (0.2-1.0); Blood Urea Nitrogen 20 mg/dL (9-23); Calcium 8.5 mg/dL (8.7-10.4); Carbon Dioxide 25 mmol/L (20-31); Chloride 108 mmol/L (98-107); Glucose 132 mg/dL (74-106); Potassium 4.4 mmol/L (3.5-5.1); Sodium 139 mmol/L (136-145); Total Protein 5.1 g/dL (5.7-8.2)
[2023-12-15 07:10] LABS: Urine Bacteria None Seen /hpf (None Seen)
[2023-12-15 07:36] LABS: Sodium Urine 54 mmol/L (40-220)
[2023-12-15 07:42] LABS: Protein, Urine 50.7 mg/dL (1-14)
[2023-12-15 07:43] LABS: Amphetamine Screen, Urine Neg (NEGATIVE); Barbiturate Scree,Urine Neg (NEGATIVE); Benzodiazephine Screen, Urine Neg (NEGATIVE)
[2023-12-15 07:44] LABS: Cannabinoid Screen, Urine Neg (NEGATIVE); Cocaine Screen, Urine Neg (NEGATIVE); Creatinine, Urine 120.55 mg/dL (30.0-125.0); Opiate Scree,Urine Neg (NEGATIVE); Phencyclidine Screen, Urine Neg (NEGATIVE); Urine Protein/Creatinine Ratio 0.42
[2023-12-15 08:02] LABS: Urine Blood Negative /uL (Negative); Urine Clarity Clear (Clear); Urine Color Yellow (Yellow); Urine Protein, UAD 1+ (Negative); Urine Specific Gravity 1.027 (1.001-1.035); Urine Urobilinogen Normal (Negative); Urine WBC 1 /hpf (0 - 3)
[2023-12-15] MEDS: PANTOPRAZOLE 40 MG/10 ML VIAL INJ IV SCH (09:44)
[2023-12-15] MEDS ORDERED: PANTOPRAZOLE 40 MG/10 ML VIAL INJ IV SCH (10:00)
[2023-12-15] MEDS: NICOTINE 21MG/24 HR TOPICAL PATCH TD SCH (12:34)
[2023-12-15] MEDS: THIAMINE HCL 100 MG TAB PO ONE (18:00)
[2023-12-15] MEDS: FOLIC ACID 1 MG TAB PO ONE (18:34)
[2023-12-15] MEDS: MAGNESIUM OXIDE 400 MG TAB PO ONE (18:34)
[2023-12-15] MEDS: MULTIPLE VITAMIN TAB PO ONE (18:35)
[2023-12-16] VITALS (8 sets, daily range): BP systolic 127–159; BP diastolic 78–92; PULSE 56–82; RESP 17–20; TEMP 98.1–98.8; O2SAT 95–98
[2023-12-16 05:38] LABS: Basophils # (auto) 0.1 10 ^3/uL (0-0.2); Basophils % (auto) 0.8 % (0.0-2.0); Eosinophils # (auto) 0.3 10 ^3/uL (0-0.8); Eosinophils % (auto) 2.5 % (0.0-7.0); Hematocrit 38.5 % (41.0-53.0); Hemoglobin 13.4 g/dL (13.5-17.5); Lymphocytes # (auto) 1.3 10 ^3/uL (0.4-5.4); Lymphocytes % (auto) 12.2 % (10.0-50.0); Mean Corpuscular Hemoglobin 33.4 pg (28.0-32.0); Mean Corpuscular Hgb Conc. 34.8 g/dL (32.0-36.0); Mean Corpuscular Volume 95.8 fL (80.0-100.0); Monocytes # (auto) 0.7 10 ^3/uL (0-1.3); Monocytes % (auto) 6.5 % (0.0-12.0); Neutrophils # (auto) 8.6 10 ^3/uL (1.6-8.6); Platelet Count (auto) 170 10^3/uL (140-450); Red Blood Cells 4.02 10^6/uL (4.5-5.90); Red Cell Distribution Width 14.1 % (11.8-14.3)
[2023-12-16 05:56] LABS: Alanine Aminotransferase 39 U/L (7-40); Albumin 3.7 g/dL (3.2-4.8); Alkaline Phosphatase 57 U/L (46-116); Anion Gap 8 (5-15); Aspartate Aminotransferase 27 U/L (13-40); Blood Urea Nitrogen 12 mg/dL (9-23); Calcium 8.9 mg/dL (8.7-10.4); Carbon Dioxide 28 mmol/L (20-31); Chloride 101 mmol/L (98-107); Glucose 158 mg/dL (74-106); Potassium 4.4 mmol/L (3.5-5.1); Sodium 137 mmol/L (136-145)
[2023-12-16 05:57] LABS: Total Protein 5.7 g/dL (5.7-8.2)
[2023-12-16 08:06] LABS: PSA Free 2.07 ng/mL; Prostate Specific Antigen 24.4 ng/mL (0.0-4.0)
[2023-12-16] MEDS: FOLIC ACID 1 MG TAB PO SCH (09:25)
[2023-12-16] MEDS: MULTIPLE VITAMIN TAB PO SCH (09:26)
[2023-12-16] MEDS: MAGNESIUM OXIDE 400 MG TAB PO SCH (09:26)
[2023-12-16] MEDS: THIAMINE HCL 100 MG TAB PO SCH (09:38)
[2023-12-16 09:51] LABS: Hepatitis B Surface Antigen Negative (Negative)
[2023-12-16 10:12] LABS: Hepatitis C Antibody Negative (Negative)
[2023-12-16] MEDS ORDERED: DEXTROSE (50%) 50ML SYRG IV PRN (12:30)
[2023-12-16] MEDS: metroNIDAZOLE 500 MG TAB PO SCH (14:18)
[2023-12-16] MEDS: ACCU-CHEK COMFORT CURVE STRIP VI SCH (17:46)
[2023-12-16] MEDS: InsuLIN REG 1unit/0.01ml Soln (100units/ml) SC SCH (17:48)
[2023-12-17] VITALS (7 sets, daily range): BP systolic 143–155; BP diastolic 83–93; PULSE 66–82; RESP 17–20; TEMP 98–98.5; O2SAT 96–97
[2023-12-17] MEDS: PANTOPRAZOLE 40 MG TAB PO SCH (06:37)
[2023-12-17] MEDS: levoFLOXacin 500MG 100 ML IV SCH (10:00)
[2023-12-17 11:09] LABS: Basophils # (auto) 0.1 10 ^3/uL (0-0.2); Basophils % (auto) 0.5 % (0.0-2.0); Eosinophils # (auto) 0.2 10 ^3/uL (0-0.8); Eosinophils % (auto) 2.3 % (0.0-7.0); Hematocrit 41.9 % (41.0-53.0); Hemoglobin 14.4 g/dL (13.5-17.5); Lymphocytes # (auto) 1.2 10 ^3/uL (0.4-5.4); Lymphocytes % (auto) 11.4 % (10.0-50.0); Mean Corpuscular Hemoglobin 32.8 pg (28.0-32.0); Mean Corpuscular Hgb Conc. 34.3 g/dL (32.0-36.0); Mean Corpuscular Volume 95.7 fL (80.0-100.0); Monocytes # (auto) 0.9 10 ^3/uL (0-1.3); Neutrophils # (auto) 8.1 10 ^3/uL (1.6-8.6); Neutrophils % (auto) 76.8 % (37.0-80.0); Platelet Count (auto) 202 10^3/uL (140-450); Red Blood Cells 4.37 10^6/uL (4.5-5.90); Red Cell Distribution Width 13.7 % (11.8-14.3); White Blood Cell 10.5 10^3/uL (4.4-10.8)
[2023-12-17 11:27] LABS: Alanine Aminotransferase 37 U/L (7-40); Albumin 3.8 g/dL (3.2-4.8); Alkaline Phosphatase 62 U/L (46-116); Anion Gap 4 (5-15); Aspartate Aminotransferase 22 U/L (13-40); BUN/Creatinine Ratio 14.4 (10.0-20.0); Blood Urea Nitrogen 13 mg/dL (9-23); Calcium 9.5 mg/dL (8.7-10.4); Carbon Dioxide 28 mmol/L (20-31); Chloride 102 mmol/L (98-107); Glucose 207 mg/dL (74-106); Potassium 4.3 mmol/L (3.5-5.1); Sodium 134 mmol/L (136-145)
[2023-12-17 11:28] LABS: Bilirubin, Total 0.7 mg/dL (0.2-1.0); Total Protein 6.1 g/dL (5.7-8.2)
[2023-12-17] MEDS ORDERED: LEVO750T40 PO (12:42)
[2023-12-17] MEDS ORDERED: ASPI-325 PO (12:42)
[2023-12-17] MEDS ORDERED: MET500T PO (12:42)
== END 2023-12-17 21:40 | disposition home or self-care (01) | DRG 871 ==
LOC: ER 10:00 → EDBD 10:00 → TELE 19:02 → UNDOADMIN 19:02 → OVERFLOW 19:21 → TELE-E-ADS 12-14 12:42
PROVIDERS: ADMIT Internal Medicine; ATTEND Internal Medicine
DX: A41.9 Sepsis, unspecified organism (principal); E11.10 Type 2 diabetes mellitus with ketoacidosis without coma; G92.8 Other toxic encephalopathy; I21.A1 Myocardial infarction type 2; N17.9 Acute kidney failure, unspecified; K86.1 Other chronic pancreatitis; D68.59 Other primary thrombophilia; E87.5 Hyperkalemia; I16.0 Hypertensive urgency; E11.22 Type 2 diabetes mellitus with diabetic chronic kidney disease; N18.9 Chronic kidney disease, unspecified; I12.9 Hypertensive chronic kidney disease with stage 1 through stage 4 chronic kidney disease, or unspecified chronic kidney disease; E86.0 Dehydration; F10.20 Alcohol dependence, uncomplicated; E07.81 Sick-euthyroid syndrome; E78.5 Hyperlipidemia, unspecified; F17.210 Nicotine dependence, cigarettes, uncomplicated; I48.0 Paroxysmal atrial fibrillation; F32.A Depression, unspecified; N28.1 Cyst of kidney, acquired; R41.3 Other amnesia; K76.0 Fatty (change of) liver, not elsewhere classified; K57.30 Diverticulosis of large intestine without perforation or abscess without bleeding; Z82.49 Family history of ischemic heart disease and other diseases of the circulatory system; Z83.3 Family history of diabetes mellitus; Z85.46 Personal history of malignant neoplasm of prostate; Z86.73 Personal history of transient ischemic attack (TIA), and cerebral infarction without residual deficits; Z88.0 Allergy status to penicillin; Z79.84 Long term (current) use of oral hypoglycemic drugs; Z79.899 Other long term (current) drug therapy
CPT/HCPCS: 36415; 36600; 70450; 71045; 74176; 76705; 76775; 80048; 80053; 80061; 80202; 80307; 80320; 81001; 82010; 82140; 82270; 82306; 82570; 82607; 82805; 82962; 83036; 83605; 83690; 83735; 83880; 83930; 83970; 84100; 84132; 84154; 84156; 84300; 84439; 84443; 84480; 84484; 84550; 85007; 85025; 85027; 85610; 85730; 86803; 87040; 87081; 87086; 87340; 93005; 93306; 96365; 96375; 97163; 99291; G0378; J0692; J1815; J2185; J2405; J2470; J7060